=== PATIENT | female | born 1945 | race Caucasian/White ===

== ENCOUNTER 2016-08-06 10:50 | Observation (INO) | payer MEDICARE, OTHER ==
--- NOTE | 2016-08-06 11:02 | EDM.PDOC ---
<Joanne Cast - Last Filed: 08/06/16 12:21> ED HPI GENERAL MEDICAL PROBLEM - General Chief Complaint: General Stated Complaint: [id number] Pneumonia Time Seen by Provider: 08/06/16 10:50 Source of Information: Reports: Patient, Family History Limitations: Reports: Altered mental status (History of liver failure) - History of Present Illness INITIAL COMMENTS - FREE TEXT/NARRATIVE: Patient presents to the ER with her . She has very vague complaints. She states she started not feeling well this morning. states she takes Lactulose 4 times per day, but has not taken it since yesterday am. Onset: today Duration: Chronic (has a history of not taking lactulose as directed.) Severity: moderate - Related Data Allergies Allergy/AdvReac Type Severity Reaction Status Date / Time Penicillins Allergy Difficulty Verified 08/06/16 12:16 Swallowing azithromycin [From Zithromax] AdvReac Unknown Nausea Verified 08/06/16 12:16 Home Meds: Home Meds Omeprazole 20 mg PO DAILY 11/01/14 [History] Lactulose 45 ml PO QID 03/17/15 [History] Alendronate Sodium [Fosamax] 70 mg PO WEEKLY 06/29/15 [History] Acetaminophen [Tylenol Extra Strength] 500 mg PO Q6H PRN 11/01/15 [History] Nadolol [Corgard] 40 mg PO DAILY 11/01/15 [History] Calcium Carbonate/Vitamin D3 [Caltrate 600 Plus D3 Tablet] 1 tab PO DAILY [History] Rifaximin [Xifaxan] 550 mg PO BID 04/28/16 [History] Spironolactone 25 mg PO TID 06/20/16 [History] glipiZIDE [Glucotrol XL] 5 mg PO BID 06/24/16 [History] Past Medical History HEENT History: Reports: Cataract, Other (see below) Other HEENT History: 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, OPHTHALMIC BRANCH Cardiovascular History: Reports: High cholesterol, Hypertension Respiratory History: Reports: Asthma Gastrointestinal History: Reports: Cholelithiasis, Cirrhosis, Other (see below) Other Gastrointestinal History: Non alcoholic liver disease; ESOPHAGEAL VARICIES Genitourinary History: Reports: None, Renal calculus, UTI, recurrent 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 , Musculoskeletal History: Reports: Back pain, chronic, Osteoarthritis, Other ( see below) Other Musculoskeletal History: HX OF RIGHT HIP PAIN, herniated disc Neurological History: Reports: Other (see below) Other Neuro History: HEPATATIC ENCEPHALOPATHY Psychiatric History: Reports: None Endocrine/Metabolic History: Reports: Diabetes, type II, Obesity/BMI 30+, Osteoporosis Hematologic History: Reports: Anemia, Other (see below) Other Hematologic History: thrombocytopenia Immunologic History: Reports: Immunosuppression Oncologic (Cancer) History: Reports: None, Liver Other Oncologic History: Non alcoholic liver disease Dermatologic History: Reports: None - Infectious Disease History Infectious Disease History: Reports: Chicken pox, Shingles - Past Surgical History Head Surgeries/Procedures: Reports: None HEENT Surgical History: Reports: Cataract surgery, Naso-sinus surgery Cardiovascular Surgical History: Reports: None Respiratory Surgical History: Reports: None GI Surgical History: Reports: Appendectomy, Cholecystectomy, Colonoscopy, EGD Female Surgical History: Reports: Salpingo-oophorectomy, Other (see below) Other Female Surgeries/Procedures: removal of right side tubes/ovary Endocrine Surgical History: Reports: None Neurological Surgical History: Reports: None Musculoskeletal Surgical History: Reports: None Oncologic Surgical History: Reports: None Dermatological Surgical History: Reports: None Social & Family History - Family History Family Medical History: Noncontributory HEENT: Reports: Cataract Cardiac: Reports: [place], Other (see below) Other Cardiac Family History: father of heart attack Respiratory: Reports: None GI: Reports: None : Reports: None OBGYN: Reports: None Musculoskeletal: Reports: Gout Neurological: Reports: None Psychiatric: Reports: None Endocrine/Metabolic: Reports: Diabetes, type II Hematologic: Reports: None Immunologic: Reports: None Oncologic: Reports: Breast - Tobacco Use Smoking Status *Q: Never Smoker Years of Tobacco use: 20 Packs/Tins Daily: 1 Second Hand Smoke Exposure: No - Caffeine Use Caffeine Use: Reports: Coffee - Alcohol Use Days Per Week of Alcohol Use: 0 - Recreational Drug Use Recreational Drug Use: No Drug Use in Last 12 Months: No - Living Situation & Occupation Living situation: Reports: ED ROS GENERAL - Review of Systems Constitutional: Reports: weakness HEENT: Reports: No symptoms Respiratory: Reports: no symptoms Cardiovascular: Reports: No symptoms Endocrine: Reports: no symptoms GI/Abdominal: Reports: No symptoms : Reports: no symptoms Musculoskeletal: Reports: no symptoms Skin: Reports: no symptoms Neurological: Reports: no symptoms Psychiatric: Reports: Confusion Hematologic/Lymphatic: Reports: no symptoms Immunologic: Reports: no symptoms ED EXAM, GENERAL - Physical Exam Exam: See Below Exam Limited By: Altered mental status General Appearance: alert, no apparent distress Ears: normal external exam, normal canal, hearing grossly normal, normal TMs Ear Exam: bilateral ear: auricle normal, canal normal, TM normal Nose: normal inspection, normal mucosa, no blood Throat/Mouth: Normal inspection, Normal lips, Normal teeth, Normal gums, Normal oropharynx, Normal voice, No airway compromise Head: atraumatic, normocephalic Neck: normal inspection, supple, non-tender, full range of motion Respiratory/Chest: no respiratory distress, lungs clear, normal breath sounds, no accessory muscle use, chest non-tender Cardiovascular: normal peripheral pulses, regular rate, rhythm, no edema, no gallop, no JVD, no murmur, no rub Peripheral Pulses: 1+: radial (L), radial (R) GI/Abdominal: normal bowel sounds, soft, non tender, no organomegaly, no distention, no abnormal bruit, no mass (Female) Exam: Deferred Rectal (Female) Exam: Deferred Back Exam: normal inspection, full range of motion, NT Extremities: normal inspection, normal range of motion, non-tender, normal capillary refill, no pedal edema Neurological: alert, CN II-XII intact, confused Psychiatric: normal affect, normal mood Skin Exam: Warm, Dry, Intact Lymphatic: no adenopathy Course - Vital Signs Last Recorded V/S: Last Vital Signs Temp 36.9 C 08/06/16 12:23 Pulse 63 08/06/16 12:23 Resp 20 08/06/16 12:23 BP 161/73 H 08/06/16 12:23 Pulse Ox 100 08/06/16 12:24 - Orders/Labs/Meds Orders: Active Orders 24 hr Category Date Time Status Blood Glucose Check, Bedside [RC] ONETIME Care 08/06/16 10:57 Active UA W/MICROSCOPIC [URIN] Stat Lab 08/06/16 10:53 Uncollected Medication Orders Insulin Aspart (Novolog) 0 unit SUBCUT QIDACANDBED BENNY PRN Reason: Protocol Sodium Chloride (Saline Flush) 10 ml FLUSH ASDIRECTED PRN PRN Reason: Keep Vein Open Labs: Laboratory Tests 08/06/16 08/06/16 08/06/16 Range/Units 10:57 11:05 11:05 WBC 2.0 L (5.0-10.0) 10^3/uL RBC 2.81 L (4.2-5.4) 10^6/uL Hgb 8.3 L (12.0-16.0) g/dL Hct 24.7 L (37.0-47.0) % MCV 87.9 (80-100) fL MCH 29.5 (27.0-34.0) pg MCHC 33.6 (33.0-35.0) g/dL Plt Count 40 L* (150-450) 10^3/uL Neut % (Auto) 65.6 (42.2-75.2) % Lymph % (Auto) 21.6 (20.5-50.1) % [place] % (Auto) 5.9 (2-8) % Eos % (Auto) 6.4 H (1.0-3.0) % Baso % (Auto) 0.5 (0.0-1.0) % Sodium 138 (135-145) mmol/L Potassium 4.5 (3.6-5.0) mmol/L Chloride 114 H (101-111) mmol/L Carbon Dioxide 20.0 L (21.0-31.0) mmol/L Anion Gap 8.5 BUN 17 (7-18) mg/dL Creatinine 0.9 (0.6-1.3) mg/dL Est Cr Clr Drug Dosing 44.52 mL/min Estimated GFR (MDRD) > 60 BUN/Creatinine Ratio 18.88 Glucose 150 H (74-105) mg/dL POC Glucose 155 H (70-105) mg/dl Calcium 8.0 L (8.4-10.2) mg/dl Total Bilirubin 0.8 (0.2-1.0) mg/dL AST 23 (10-42) IU/L ALT 12 (10-60) IU/L Alkaline Phosphatase 33 L (42-121) IU/L Ammonia (11-35) umol/L Total Protein 5.8 L (6.7-8.2) g/dl Albumin 2.8 L (3.2-5.5) g/dl Globulin 3.0 Albumin/Globulin Ratio 0.93 08/06/16 Range/Units 11:05 WBC (5.0-10.0) 10^3/uL RBC (4.2-5.4) 10^6/uL Hgb (12.0-16.0) g/dL Hct (37.0-47.0) % MCV (80-100) fL MCH (27.0-34.0) pg MCHC (33.0-35.0) g/dL Plt Count (150-450) 10^3/uL Neut % (Auto) (42.2-75.2) % Lymph % (Auto) (20.5-50.1) % [place] % (Auto) (2-8) % Eos % (Auto) (1.0-3.0) % Baso % (Auto) (0.0-1.0) % Sodium (135-145) mmol/L Potassium (3.6-5.0) mmol/L Chloride (101-111) mmol/L Carbon Dioxide (21.0-31.0) mmol/L Anion Gap BUN (7-18) mg/dL Creatinine (0.6-1.3) mg/dL Est Cr Clr Drug Dosing mL/min Estimated GFR (MDRD) BUN/Creatinine Ratio Glucose (74-105) mg/dL POC Glucose (70-105) mg/dl Calcium (8.4-10.2) mg/dl Total Bilirubin (0.2-1.0) mg/dL AST (10-42) IU/L ALT (10-60) IU/L Alkaline Phosphatase (42-121) IU/L Ammonia 81 H (11-35) umol/L Total Protein (6.7-8.2) g/dl Albumin (3.2-5.5) g/dl Globulin Albumin/Globulin Ratio Meds: Medications Generic Name Dose Route Start Last Admin Trade Name Freq PRN Reason Stop Dose Admin Insulin Aspart 0 unit 08/06/16 17:00 Novolog SUBCUT QIDACANDBED BENNY Protocol Sodium Chloride 10 ml 08/06/16 12:23 Saline Flush FLUSH ASDIRECTED PRN Keep Vein Open Departure - Departure Time of Disposition: 11:58 (Admit to Dr. Pascual) Disposition: Refer to Observation Condition: good Clinical Impression: Non compliance w medication regimen, Pancytopenia, Hepatic encephalopathy <Antolin Ulrich - Last Filed: 08/06/16 13:12> ED HPI GENERAL MEDICAL PROBLEM - History of Present Illness Duration: Getting worse Location: Reports: generalized Improves with: Reports: None Worsens with: Reports: None Associated Symptoms: Reports: no other symptoms Bilateral Leg Pain Score (Numeric/FACES): 7 ED ROS GENERAL - Review of Systems Review Of Systems: See Below Course - Orders/Labs/Meds Meds: Medications Generic Name Dose Route Start Last Admin Trade Name Freq PRN Reason Stop Dose Admin Insulin Aspart 0 unit 08/06/16 17:00 Novolog SUBCUT QIDACANDBED BENNY Protocol Sodium Chloride 10 ml 08/06/16 12:23 Saline Flush FLUSH ASDIRECTED PRN Keep Vein Open - Re-Assessments/Exams Free Text/Narrative Re-Assessment/Exam: 08/06/16 12:02 FOR THIS ENCOUNTER THE PATIENT WAS SEEN IN CONJUNCTION WITH [facility] STUDENT JOANNE CAST. ALL PATIENT CARE AND/OR PROCEDURE(S), DIAGNOSTIC ORDERS, MEDICATION(S) AND TREATMENT ORDERS, DISPOSITION ORDERS/PLANNING, AND DISCHARGE/FOLLOW UP INSTRUCTIONS WERE UNDER MY DIRECT SUPERVISION. wally
[2016-08-06 11:33] LABS: CHLORIDE,CL 114 mmol/L (101-111); SODIUM,NA 138 mmol/L (135-145)
[2016-08-06] MEDS ORDERED: Sodium Chloride 0.9% 10 ML Syringe FLUSH PRN (12:23)
--- NOTE | 2016-08-06 12:26 | PCM.HP ---
H&P History of Present Illness - General Date of Service: 08/06/16 Admit Problem/Dx: Admission Diagnosis/Problem Admission Diagnosis/Problem Encephalopathy Source of Information: Family, Provider History Limitations: Reports: Altered mental status - History of Present Illness Initial Comments - Free Text/Narative: Ashley is a 70 y/o who resides at home with her . She has a PMH of primary biliary cirrhosis, TOPETE, h/o multiople admission for hepatic encephalopathy , pancytopenia, and DM. pt presents with confusion. noted this am that she was "not herself " and confused. He suspects she has not been taking her medications (per EOD MD report- no family at bedside when pt transfered to floor) - pt states she doesnt like the lactulos as it causes diarrhea and makes her nauseated when she takes it. PT can id that she is in the hospital in [place] because she is confused and not taking her meds but her overal history is very unreliable- she gives different answers for same question i.e. did/ did not take her am meds, did / did not take just her lactulose / rifampin. PT also could not recall name of her lactulose- which she typically would be able to - was able to recall with hints/promps from nurse. she denies any f/c, n/v, diarrhea, abd pain, cough, cp, sob, dysuria, or urinary frequency no muslce pain. no joint pain. - Related Data Allergies/Adverse Reactions: Allergies Allergy/AdvReac Type Severity Reaction Status Date / Time Penicillins Allergy Difficulty Verified 08/06/16 12:16 Swallowing azithromycin [From Zithromax] AdvReac Unknown Nausea Verified 08/06/16 12:16 Home Medications: Home Meds Omeprazole 20 mg PO DAILY 11/01/14 [History] Lactulose 45 ml PO QID 03/17/15 [History] Alendronate Sodium [Fosamax] 70 mg PO WEEKLY 06/29/15 [History] Acetaminophen [Tylenol Extra Strength] 500 mg PO Q6H PRN 11/01/15 [History] Nadolol [Corgard] 40 mg PO DAILY 11/01/15 [History] Calcium Carbonate/Vitamin D3 [Caltrate 600 Plus D3 Tablet] 1 tab PO DAILY [History] Rifaximin [Xifaxan] 550 mg PO BID 04/28/16 [History] Spironolactone 25 mg PO TID 06/20/16 [History] glipiZIDE [Glucotrol XL] 5 mg PO BID 06/24/16 [History] Past Medical History HEENT History: Reports: Cataract, Other (see below) Other HEENT History: 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, OPHTHALMIC BRANCH Cardiovascular History: Reports: High cholesterol, Hypertension Respiratory History: Reports: Asthma Gastrointestinal History: Reports: Cholelithiasis, Cirrhosis, Other (see below) Other Gastrointestinal History: Non alcoholic liver disease; ESOPHAGEAL VARICIES Genitourinary History: Reports: None, Renal calculus, UTI, recurrent 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 , Musculoskeletal History: Reports: Back pain, chronic, Osteoarthritis, Other ( see below) Other Musculoskeletal History: HX OF RIGHT HIP PAIN, herniated disc Neurological History: Reports: Other (see below) Other Neuro History: HEPATATIC ENCEPHALOPATHY Psychiatric History: Reports: None Endocrine/Metabolic History: Reports: Diabetes, type II, Obesity/BMI 30+, Osteoporosis Hematologic History: Reports: Anemia, Other (see below) Other Hematologic History: thrombocytopenia Immunologic History: Reports: Immunosuppression Oncologic (Cancer) History: Reports: None, Liver Other Oncologic History: Non alcoholic liver disease Dermatologic History: Reports: None - Infectious Disease History Infectious Disease History: Reports: Chicken pox, Shingles - Past Surgical History Head Surgeries/Procedures: Reports: None HEENT Surgical History: Reports: Cataract surgery, Naso-sinus surgery Cardiovascular Surgical History: Reports: None Respiratory Surgical History: Reports: None GI Surgical History: Reports: Appendectomy, Cholecystectomy, Colonoscopy, EGD Female Surgical History: Reports: Salpingo-oophorectomy, Other (see below) Other Female Surgeries/Procedures: removal of right side tubes/ovary Endocrine Surgical History: Reports: None Neurological Surgical History: Reports: None Musculoskeletal Surgical History: Reports: None Oncologic Surgical History: Reports: None Dermatological Surgical History: Reports: None Social & Family History - Family History Family Medical History: Noncontributory HEENT: Reports: Cataract Cardiac: Reports: [place], Other (see below) Other Cardiac Family History: father of heart attack Respiratory: Reports: None GI: Reports: None : Reports: None OBGYN: Reports: None Musculoskeletal: Reports: Gout Neurological: Reports: None Psychiatric: Reports: None Endocrine/Metabolic: Reports: Diabetes, type II Hematologic: Reports: None Immunologic: Reports: None Oncologic: Reports: Breast - Tobacco Use Smoking Status *Q: Never Smoker Years of Tobacco use: 20 Packs/Tins Daily: 1 Second Hand Smoke Exposure: No - Caffeine Use Caffeine Use: Reports: Coffee - Alcohol Use Days Per Week of Alcohol Use: 0 - Recreational Drug Use Recreational Drug Use: No Drug Use in Last 12 Months: No - Living Situation & Occupation Living situation: Reports: H&P Review of Systems - Review of Systems: Review Of Systems: See Below Free Text/Narrative: taken but not necessarily reliable since she is confused and not giving accurate history General: Reports: no symptoms HEENT: Reports: no symptoms Pulmonary: Reports: no symptoms Cardiovascular: Reports: no symptoms Gastrointestinal: Reports: Diarrhea (with the lactolose ), Nausea Genitourinary: Reports: no symptoms Musculoskeletal: Reports: no symptoms Skin: Reports: no symptoms Psychiatric: Reports: no symptoms Neurological: Reports: confusion Hematologic/Lymphatic: Reports: anemia, easy bruising Exam - Exam Exam: See Below - Vital Signs Vital Signs: Last Vital Signs Temp 36.1 C 08/06/16 10:59 Pulse 71 08/06/16 10:59 Resp 18 08/06/16 10:59 BP 159/64 H 08/06/16 10:59 Pulse Ox 98 08/06/16 10:59 Weight: 72.575 kg - Exam General: alert, cooperative HEENT: Conjunctiva clear, Mucosa moist & pink Lungs: Clear to auscultation, Normal respiratory effort Cardiovascular: regular rate, regular rhythm, systolic murmur Abdomen: normal bowel sounds, soft Extremities: normal inspection, edema (minimal pedal ) Peripheral Pulses: 2+: radial (L), radial (R) Skin: warm Neuro Extensive - Mental Status: alert, inattentive, memory loss-recent events Psychiatric: alert, normal affect - Patient Data Result Diagrams: 08/06/16 11:05 08/06/16 11:05 *Q Meaningful Use (ADM) - VTE *Q VTE Criteria *Q: - Stroke *Q Stroke Criteria *Q: - AMI *Q AMI Criteria *Q: - Problem List (1) Hepatic encephalopathy SNOMED Code(s): 05579486 ICD Code: K72.90 - HEPATIC FAILURE, UNSPECIFIED WITHOUT COMA Status: Acute Current Visit: Yes (2) Non compliance w medication regimen SNOMED Code(s): 589031143 ICD Code: Z91.14 - PATIENT'S OTHER NONCOMPLIANCE WITH MEDICATION REGIMEN Status: Acute Current Visit: Yes (3) Pancytopenia SNOMED Code(s): 913182080 ICD Code: D61.818 - OTHER PANCYTOPENIA Status: Acute Current Visit: Yes Problem List Initiated/Reviewed/Updated: Yes Orders Last 24hrs: Active Orders 24 hr Category Date Time Status Patient Status [ADT] Routine ADT 08/06/16 12:23 Ordered Antiembolic Devices [RC] PER UNIT ROUTINE Care 08/06/16 12:25 Ordered Height and Weight [RC] DAILY Care 08/06/16 12:23 Ordered Intake and Output [RC] QSHIFT Care 08/06/16 12:24 Ordered Oxygen Therapy [RC] PRN Care 08/06/16 12:23 Ordered Peripheral IV Care [RC] . DIRECTED Care 08/06/16 12:25 Ordered Pulse Oximetry [RC] PRN Care 08/06/16 12:24 Ordered Up With Assistance [RC] ASDIRECTED Care 08/06/16 12:23 Ordered VTE/DVT Education [RC] PER UNIT ROUTINE Care 08/06/16 12:23 Ordered Vital Signs [RC] Q4H Care 08/06/16 12:23 Ordered Consistent Carbohydrate Diet [DIET] Diet 08/06/16 Dinner Ordered Sodium Chloride 0.9% [Saline Flush] Med 08/06/16 12:23 Ordered 10 ml FLUSH ASDIRECTED PRN Antiembolic Hose [OM.PC] Per Unit Routine Oth 08/06/16 12:25 Ordered Peripheral IV Insertion Adult [OM.PC] Routine Oth 08/06/16 12:23 Ordered Resuscitation Status Routine Resus Stat 08/06/16 12:23 Ordered Assessment/Plan Comment:: acute Hepatic encephalopathy with h/o PBC and TOPETE -likely due to non-complience -ammonia level 81 - above her baseline levels -no evidence of infection- will f/u on UA - so far uncollected -resume rifapin and lactulose - can add PRN zofran to see if will help with the associated nausea -resume spirololactone and coreg, calcium and vit D -pt has low albumin - will recommend nighttime protein drink to family DM -resume home med - glipizide -add DM diet -add SSI for PRN pancytopenia -levels near baseline - WBC 2; hgb 8.3 plates 40 -no s/s of bleeding recent cateract surgery cont eye drops full code RUPALI DVT PPX due to low plates
[2016-08-06] MEDS ORDERED: Ondansetron 4 MG Tab.DIS PO PRN (13:18)
[2016-08-06] MEDS: Lactulose Soln 10 GM/15 ML 30 ML UD Cup PO SCH ×3 (15:04→21:31)
[2016-08-06] MEDS: Spironolactone 25 MG Tab PO SCH ×2 (15:05→21:28)
[2016-08-06] MEDS: Insulin Aspart 100 Units/ML 3 ML Pen SUBCUT SCH ×2 (17:53→21:35)
[2016-08-06] MEDS: glipiZIDE 5 MG Tab.ER PO SCH (17:55)
[2016-08-06] MEDS: Rifaximin 550 MG Tab PO SCH (21:28)
[2016-08-07] MEDS ORDERED: Omeprazole 20 MG Cap.CR PO SCH (06:00)
[2016-08-07] MEDS: Insulin Aspart 100 Units/ML 3 ML Pen SUBCUT SCH ×2 (07:54→12:10)
[2016-08-07] MEDS: glipiZIDE 5 MG Tab.ER PO SCH (08:59)
[2016-08-07] MEDS: Spironolactone 25 MG Tab PO SCH ×2 (09:00→13:06)
[2016-08-07] MEDS ORDERED: Calcium Carbonate/Vitamin D3 1250 MG-200 Unit Tab PO SCH (09:00)
[2016-08-07] MEDS: Rifaximin 550 MG Tab PO SCH (09:00)
[2016-08-07] MEDS ORDERED: NADOLOL 40 MG PO SCH (09:00)
[2016-08-07] MEDS: Lactulose Soln 10 GM/15 ML 30 ML UD Cup PO SCH ×2 (09:02→13:07)
--- NOTE | 2016-08-07 10:45 | PCM.DCSUM1 ---
Discharge Summary - Hospital Course HPI Initial Comments: Ashley is a 70 y/o who resides at home with her . She has a PMH of primary biliary cirrhosis, TOPETE, h/o multiople admission for hepatic encephalopathy , pancytopenia, and DM. pt presents with confusion. noted this am that she was "not herself " and confused. He suspects she has not been taking her medications (per EOD MD report- no family at bedside when pt transfered to floor) - pt states she doesnt like the lactulos as it causes diarrhea and makes her nauseated when she takes it. PT can id that she is in the hospital in [place] because she is confused and not taking her meds but her overal history is very unreliable- she gives different answers for same question i.e. did/ did not take her am meds, did / did not take just her lactulose / rifampin. PT also could not recall name of her lactulose- which she typically would be able to - was able to recall with hints/promps from nurse. she denies any f/c, n/v, diarrhea, abd pain, cough, cp, sob, dysuria, or urinary frequency no muslce pain. no joint pain. - Discharge Data Discharge Date: 08/07/16 Discharge Disposition: Home, Self-Care 01 Condition: Good - Discharge Diagnosis/Problem(s) (1) Hepatic encephalopathy SNOMED Code(s): 39899047 ICD Code: K72.90 - HEPATIC FAILURE, UNSPECIFIED WITHOUT COMA Status: Acute Current Visit: Yes (2) Non compliance w medication regimen SNOMED Code(s): 596836402 ICD Code: Z91.14 - PATIENT'S OTHER NONCOMPLIANCE WITH MEDICATION REGIMEN Status: Acute Current Visit: Yes (3) Pancytopenia SNOMED Code(s): 166592523 ICD Code: D61.818 - OTHER PANCYTOPENIA Status: Acute Current Visit: Yes - Patient Summary/Data Hospital Course: acute Hepatic encephalopathy with h/o PBC and TOPETE -likely due to non-complience -ammonia level 81 - above her baseline levels -no evidence of infection- -resumed rifapin and lactulose - and pt responded appropriately with 3-4 stools. her sensorium has cleared and she is back to near baseline this AM -on reitan test this AM- completed in 64 seconds- appropriate for her age -contd spirololactone and coreg, calcium and vit D -pt has low albumin - pt will be seeing an nutritionest later this month f/u with Nevaeh Cr 10/22/16 with ultra sound -f/u with Asia Whitaker 08/21/16 for routine f/u DM -resumed home med - glipizide -stable pancytopenia -levels near baseline - WBC 2; hgb 8.3 plates 40 - stable -no s/s of bleeding d/c home with family - Patient Instructions Diet: Diabetic Diet Activity: As Tolerated Driving: Do Not Drive Showering/Bathing: May Shower Notify Provider of: Fever, Increased Pain Other/Special Instructions: f/u with: Asia Whitaker 08/21/16 at 10:40. Angela Martin, blower feeder dyed raw stock, telemed- 09/03/16 at 11:20. Ingris Cr, 10/22/16 - ultra sound at 0900 and appointment at 1030 - Discharge Plan Home Medications: Home Meds Omeprazole 20 mg PO DAILY 11/01/14 [History] Lactulose 45 ml PO QID 03/17/15 [History] Alendronate Sodium [Fosamax] 70 mg PO WEEKLY 06/29/15 [History] Acetaminophen [Tylenol Extra Strength] 500 mg PO Q6H PRN 11/01/15 [History] Nadolol [Corgard] 40 mg PO DAILY 11/01/15 [History] Calcium Carbonate/Vitamin D3 [Caltrate 600 Plus D3 Tablet] 1 tab PO DAILY [History] Rifaximin [Xifaxan] 550 mg PO BID 04/28/16 [History] Spironolactone 25 mg PO TID 06/20/16 [History] glipiZIDE [Glucotrol XL] 5 mg PO BID 06/24/16 [History] - General Info Date of Service: 08/07/16 Subjective Update: pt much improved this am. no BM yet today but 3-4 yesterday after admit. pt states no nausesa today. states diarrhea and not nausea is the reason she doesnt take her lactulose- she is complient with her other meds. family have alarm system to help her remember to take her meds. no complaints this am. son states she is much improved and comfortable with her going home Functional Status: Reports: pain controlled, tolerating diet, ambulating, urinating - Review of Systems General: Reports: no symptoms HEENT: Reports: no symptoms Pulmonary: Reports: no symptoms Cardiovascular: Reports: no symptoms Gastrointestinal: Reports: No symptoms Genitourinary: Reports: no symptoms Musculoskeletal: Reports: no symptoms Skin: Reports: no symptoms Neurological: Reports: no symptoms Psychiatric: Reports: no symptoms - Patient Data Vitals - Most Recent: Last Vital Signs Temp 36.6 C 08/07/16 08:00 Pulse 69 08/07/16 08:00 Resp 14 08/07/16 08:00 BP 140/66 08/07/16 08:00 Pulse Ox 99 08/07/16 08:00 Weight - Most Recent: 176.2 kg I&O - Last 24 hours: Intake & Output 08/06/16 08/07/16 08/07/16 22:59 06:59 14:59 Intake Total 220 440 Output Total 350 Balance 220 90 Lab Results - Last 24 hrs: Laboratory Results - last 24 hr 08/06/16 08/06/16 08/07/16 Range/Units 17:06 20:54 07:39 POC Glucose 229 H 141 H 74 (70-105) mg/dl Med Orders - Current: Current Medications Calcium Carbonate (Calcium Carbonate/Vitamin D 1250 Mg-200 Unit) 1 tab PO DAILY [facility] Last Admin: 08/07/16 08:58 Dose: 1 tab Glipizide (Glucotrol Xl) 5 mg PO BIDMEALS [facility] Last Admin: 08/07/16 08:59 Dose: 5 mg Insulin Aspart (Novolog) 0 unit SUBCUT QIDACANDBED [facility] PRN Reason: Protocol Last Admin: 08/07/16 07:54 Dose: Not Given Lactulose (Cephulac) 30 gm PO QID [facility] Last Admin: 08/07/16 09:02 Dose: 30 gm Omeprazole (Omeprazole) 20 mg PO ACBRK [facility] Last Admin: 08/07/16 05:50 Dose: 20 mg Ondansetron HCl (Zofran Odt) 4 mg PO Q4H PRN PRN Reason: Nausea Nadolol [Corgard] 40 MgPt's Own Med * 0 each PO DAILY [facility] Rifaximin (Xifaxan) 550 mg PO BID [facility] Last Admin: 08/07/16 09:00 Dose: 550 mg Sodium Chloride (Saline Flush) 10 ml FLUSH ASDIRECTED PRN PRN Reason: Keep Vein Open Spironolactone (Aldactone) 25 mg PO TID [facility] Last Admin: 08/07/16 09:00 Dose: 25 mg - Exam General: Reports: alert, oriented, cooperative, no acute distress Lungs: Reports: Clear to auscultation, Normal respiratory effort Cardiovascular: Reports: regular rate, regular rhythm, murmurs Abdomen: Reports: bowel sounds present, no tenderness Extremities: Reports: no edema Neurological: Reports: normal speech, other (no confusion. able to complete Reitan test in 64 seconds- approprate for her age ) Psy/Mental Status: Reports: alert, normal affect, normal mood *Q Meaningful Use (DIS) - VTE *Q VTE Criteria *Q: - Stroke *Q Stroke Criteria *Q: - AMI *Q AMI Criteria *Q:
[2016-08-07 11:11] VITALS: BP 139/57
== END 2016-08-07 13:55 | disposition home or self-care (01) ==
LOC: DL.ED 10:50 → UNDOADMOB 11:56 → DL.MS 11:56 → UNDOADMOB 12:22 → DL.MS 12:23
PROVIDERS: ADMIT Internal Medicine; ATTEND Internal Medicine
DX: K72.90 Hepatic failure, unspecified without coma (principal); K74.5 Biliary cirrhosis, unspecified; D61.818 Other pancytopenia; E11.9 Type 2 diabetes mellitus without complications; I10 Essential (primary) hypertension; E78.00 Pure hypercholesterolemia, unspecified; J45.909 Unspecified asthma, uncomplicated; M19.90 Unspecified osteoarthritis, unspecified site; D69.6 Thrombocytopenia, unspecified; D64.9 Anemia, unspecified; M81.0 Age-related osteoporosis without current pathological fracture; Z91.14 Patient's other noncompliance with medication regimen; Z79.899 Other long term (current) drug therapy; Z88.0 Allergy status to penicillin; Z88.1 Allergy status to other antibiotic agents; Z87.442 Personal history of urinary calculi; Z98.890 Other specified postprocedural states; Z90.49 Acquired absence of other specified parts of digestive tract
CPT/HCPCS: 36415; 80053; 81001; 82140; 82962; 85025; 99285; A9270; G0378; J1815

== ENCOUNTER 2016-09-30 09:55 | Inpatient (IN) | payer MEDICARE, OTHER ==
[2016-09-30 10:32] LABS: CHLORIDE,CL 115 mmol/L (101-111); SODIUM,NA 141 mmol/L (135-145)
--- NOTE | 2016-09-30 10:33 | EDM.PDOC ---
ED HPI GENERAL MEDICAL PROBLEM - General Chief Complaint: General Stated Complaint: CONFUSED Time Seen by Provider: 09/30/16 10:20 Source of Information: Reports: Patient, Family History Limitations: Reports: No limitations - History of Present Illness INITIAL COMMENTS - FREE TEXT/NARRATIVE: This 71 yo female patient reports to the ED with her due to increased confusion over the past 24 hours. The patient reports she has missed a "couple" of doses of her medication over the past week. The patient's reports the patient has missed doses of her Lactulose on Thursday (due to being in physical therapy), (due to being in physical therapy), Thursday (for unknown reason), Thursday (due to episcopal) and Thursday (for unknown reason). The patient has a history of primary biliary cirrhosis, TOPETE, hepatic encephalopathy , pancytopenia and DM. The patient reports she has been taking all of her other medications as scheduled. The patient's reports that he has been attempting to assist her in taking her medications, but the patient as refused to take some of her medication doses due to having to use the bathroom. The patient has been admitted numerous times for similar symptoms. Onset: gradual Duration: Day(s):, Constant, Getting worse Location: Reports: other Severity: moderate Improves with: Reports: None Worsens with: Reports: None Associated Symptoms: Reports: no other symptoms - Related Data Allergies Allergy/AdvReac Type Severity Reaction Status Date / Time Penicillins Allergy Difficulty Verified 09/30/16 09:49 Swallowing azithromycin [From Zithromax] AdvReac Unknown Nausea Verified 09/30/16 09:49 Home Meds: Home Meds Omeprazole 20 mg PO DAILY 11/01/14 [History] Lactulose 45 ml PO QID 03/17/15 [History] Alendronate Sodium [Fosamax] 70 mg PO WEEKLY 06/29/15 [History] Acetaminophen [Tylenol Extra Strength] 500 mg PO Q6H PRN 11/01/15 [History] Nadolol [Corgard] 40 mg PO DAILY 11/01/15 [History] Calcium Carbonate/Vitamin D3 [Caltrate 600 Plus D3 Tablet] 1 tab PO DAILY [History] Rifaximin [Xifaxan] 550 mg PO BID 04/28/16 [History] Spironolactone 25 mg PO TID 06/20/16 [History] glipiZIDE [Glucotrol XL] 5 mg PO BID 06/24/16 [History] Past Medical History HEENT History: Reports: Cataract, Other (see below) Other HEENT History: 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, OPHTHALMIC BRANCH Cardiovascular History: Reports: High cholesterol, Hypertension Respiratory History: Reports: Asthma Gastrointestinal History: Reports: Cholelithiasis, Cirrhosis, Other (see below) Other Gastrointestinal History: Non alcoholic liver disease; ESOPHAGEAL VARICIES Genitourinary History: Reports: None, Renal calculus, UTI, recurrent APRN History: Reports: Ectopic , Musculoskeletal History: Reports: Back pain, chronic, Osteoarthritis, Other ( see below) Other Musculoskeletal History: HX OF RIGHT HIP PAIN, herniated disc Neurological History: Reports: Other (see below) Other Neuro History: HEPATATIC ENCEPHALOPATHY Psychiatric History: Reports: None Endocrine/Metabolic History: Reports: Diabetes, type II, Obesity/BMI 30+, Osteoporosis Hematologic History: Reports: Anemia, Other (see below) Other Hematologic History: thrombocytopenia Immunologic History: Reports: Immunosuppression Oncologic (Cancer) History: Reports: None, Liver Other Oncologic History: Non alcoholic liver disease Dermatologic History: Reports: None - Infectious Disease History Infectious Disease History: Reports: Chicken pox, Shingles - Past Surgical History Head Surgeries/Procedures: Reports: None HEENT Surgical History: Reports: Cataract surgery, Naso-sinus surgery Cardiovascular Surgical History: Reports: None Respiratory Surgical History: Reports: None GI Surgical History: Reports: Appendectomy, Cholecystectomy, Colonoscopy, EGD Female Surgical History: Reports: Salpingo-oophorectomy, Other (see below) Other Female Surgeries/Procedures: removal of right side tubes/ovary Endocrine Surgical History: Reports: None Neurological Surgical History: Reports: None Musculoskeletal Surgical History: Reports: None Oncologic Surgical History: Reports: None Dermatological Surgical History: Reports: None Social & Family History - Family History Family Medical History: Noncontributory HEENT: Reports: Cataract Cardiac: Reports: [place], Other (see below) Other Cardiac Family History: father of heart attack Respiratory: Reports: None GI: Reports: None : Reports: None OBGYN: Reports: None Musculoskeletal: Reports: Gout Neurological: Reports: None Psychiatric: Reports: None Endocrine/Metabolic: Reports: Diabetes, type II Hematologic: Reports: None Immunologic: Reports: None Oncologic: Reports: Breast - Tobacco Use Smoking Status *Q: Never Smoker Years of Tobacco use: 20 Packs/Tins Daily: 1 Second Hand Smoke Exposure: No - Caffeine Use Caffeine Use: Reports: Coffee - Alcohol Use Days Per Week of Alcohol Use: 0 - Recreational Drug Use Recreational Drug Use: No Drug Use in Last 12 Months: No - Living Situation & Occupation Living situation: Reports: ED ROS GENERAL - Review of Systems Review Of Systems: ROS reveals no pertinent complaints other than HPI. ED EXAM, GENERAL - Physical Exam Exam: See Below Exam Limited By: No limitations General Appearance: alert, WD/WN, mild distress Eye Exam: bilateral eye: EOMI, normal inspection, PERRL Ears: normal external exam, normal canal, hearing grossly normal, normal TMs Nose: normal inspection, normal mucosa, no blood Throat/Mouth: Normal inspection, Normal lips, Normal teeth, Normal gums, Normal oropharynx, Normal voice, No airway compromise Head: atraumatic, normocephalic Neck: normal inspection, supple, non-tender, full range of motion Respiratory/Chest: no respiratory distress, no accessory muscle use, chest non- tender, wheezing Cardiovascular: normal peripheral pulses, regular rate, rhythm, no edema, no gallop, no JVD, no murmur, no rub GI/Abdominal: normal bowel sounds, soft, non tender, no organomegaly, no distention, no abnormal bruit, no mass (Female) Exam: Deferred Rectal (Female) Exam: Deferred Back Exam: normal inspection, full range of motion, NT Extremities: normal inspection, normal range of motion, non-tender, normal capillary refill, no pedal edema Neurological: alert Psychiatric: flat affect Skin Exam: Warm, Dry, Intact, Normal color, No rash Lymphatic: no adenopathy Course - Vital Signs Last Recorded V/S: Last Vital Signs Temp 36.4 C 09/30/16 10:18 Pulse 71 09/30/16 10:18 Resp 20 09/30/16 10:18 BP 175/64 H 09/30/16 10:18 Pulse Ox 99 09/30/16 10:18 - Orders/Labs/Meds Orders: Active Orders 24 hr Category Date Time Status Chest 2V [CR] Urgent Exams 09/30/16 10:42 Ordered CULTURE BLOOD [BC] Stat Lab 09/30/16 10:00 Received CULTURE BLOOD [BC] Stat Lab 09/30/16 10:03 Results Lactulose [Cephulac] Med 09/30/16 10:53 Once 30 gm PO ONETIME ONE Blood Culture x2 Reflex Set [OM.PC] Stat Oth 09/30/16 09:48 Ordered Labs: Laboratory Tests 09/30/16 09/30/16 09/30/16 Range/Units 10:00 10:00 10:00 WBC 2.0 L (5.0-10.0) 10^3/uL RBC 2.64 L (4.2-5.4) 10^6/uL Hgb 8.7 L (12.0-16.0) g/dL Hct 25.3 L (37.0-47.0) % MCV 95.8 (80-100) fL MCH 33.0 (27.0-34.0) pg MCHC 34.4 (33.0-35.0) g/dL Plt Count 49 L (150-450) 10^3/uL Neut % (Auto) 60.0 (42.2-75.2) % Lymph % (Auto) 26.0 (20.5-50.1) % [place] % (Auto) 6.0 (2-8) % Eos % (Auto) 7.0 H (1.0-3.0) % Baso % (Auto) 1.0 (0.0-1.0) % Sodium 141 (135-145) mmol/L Potassium 4.6 (3.6-5.0) mmol/L Chloride 115 H (101-111) mmol/L Carbon Dioxide 19.0 L (21.0-31.0) mmol/L Anion Gap 11.6 BUN 23 H (7-18) mg/dL Creatinine 1.1 (0.6-1.3) mg/dL Est Cr Clr Drug Dosing 35.91 mL/min Estimated GFR (MDRD) 49 BUN/Creatinine Ratio 20.90 Glucose 163 H (74-105) mg/dL Lactic Acid (0.5-2.2) mmol/L Calcium 8.6 (8.4-10.2) mg/dl Magnesium 1.4 L (1.8-2.5) mg/dL Total Bilirubin 1.0 (0.2-1.0) mg/dL AST 28 (10-42) IU/L ALT 15 (10-60) IU/L Alkaline Phosphatase 39 L (42-121) IU/L Ammonia 77 H (11-35) umol/L Total Protein 6.2 L (6.7-8.2) g/dl Albumin 3.1 L (3.2-5.5) g/dl Globulin 3.1 Albumin/Globulin Ratio 1.00 Amylase 67 (28-100) U/L Lipase 68 H (22-51) U/L Urine Color (YELLOW) Urine Appearance (CLEAR) Urine pH (5.0-9.0) Ur Specific [place] (1.005-1.030) Urine Protein (NEGATIVE) Urine Glucose (UA) (NEGATIVE) Urine Ketones (NEGATIVE) Urine Occult Blood (NEGATIVE) Urine Nitrite (NEGATIVE) Urine Bilirubin (NEGATIVE) Urine Urobilinogen (0.2-1.0) mg/dL Ur Leukocyte Esterase (NEGATIVE) Urine RBC /HPF Urine WBC (0-5/HPF) /HPF Ur Epithelial Cells /HPF Urine Bacteria (0-FEW/HPF) /HPF Urine Yeast (0/HPF) /HPF Urine Opiates Screen (NEGATIVE) Ur Oxycodone Screen (NEGATIVE) Urine Methadone Screen (NEGATIVE) Ur Barbiturates Screen (NEGATIVE) U Tricyclic Antidepress (NEGATIVE) Ur Phencyclidine Scrn (NEGATIVE) Ur Amphetamine Screen (NEGATIVE) U Methamphetamines Scrn (NEGATIVE) Urine MDMA Screen (NEGATIVE) U Benzodiazepines Scrn (NEGATIVE) Urine Cocaine Screen (NEGATIVE) U Marijuana (THC) Screen (NEGATIVE) Ethyl Alcohol < 5 mg/dL 09/30/16 09/30/16 09/30/16 Range/Units 10:00 10:05 10:05 WBC (5.0-10.0) 10^3/uL RBC (4.2-5.4) 10^6/uL Hgb (12.0-16.0) g/dL Hct (37.0-47.0) % MCV (80-100) fL MCH (27.0-34.0) pg MCHC (33.0-35.0) g/dL Plt Count (150-450) 10^3/uL Neut % (Auto) (42.2-75.2) % Lymph % (Auto) (20.5-50.1) % [place] % (Auto) (2-8) % Eos % (Auto) (1.0-3.0) % Baso % (Auto) (0.0-1.0) % Sodium (135-145) mmol/L Potassium (3.6-5.0) mmol/L Chloride (101-111) mmol/L Carbon Dioxide (21.0-31.0) mmol/L Anion Gap BUN (7-18) mg/dL Creatinine (0.6-1.3) mg/dL Est Cr Clr Drug Dosing mL/min Estimated GFR (MDRD) BUN/Creatinine Ratio Glucose (74-105) mg/dL Lactic Acid 1.1 (0.5-2.2) mmol/L Calcium (8.4-10.2) mg/dl Magnesium (1.8-2.5) mg/dL Total Bilirubin (0.2-1.0) mg/dL AST (10-42) IU/L ALT (10-60) IU/L Alkaline Phosphatase (42-121) IU/L Ammonia (11-35) umol/L Total Protein (6.7-8.2) g/dl Albumin (3.2-5.5) g/dl Globulin Albumin/Globulin Ratio Amylase (28-100) U/L Lipase (22-51) U/L Urine Color Yellow (YELLOW) Urine Appearance Slightly cloudy (CLEAR) Urine pH 5.5 (5.0-9.0) Ur Specific [place] 1.020 (1.005-1.030) Urine Protein 100 H (NEGATIVE) Urine Glucose (UA) Negative (NEGATIVE) Urine Ketones Negative (NEGATIVE) Urine Occult Blood Moderate H (NEGATIVE) Urine Nitrite Negative (NEGATIVE) Urine Bilirubin Negative (NEGATIVE) Urine Urobilinogen 0.2 (0.2-1.0) mg/dL Ur Leukocyte Esterase Negative (NEGATIVE) Urine RBC 5-10 H /HPF Urine WBC 10-20 H (0-5/HPF) /HPF Ur Epithelial Cells Many H /HPF Urine Bacteria Many H (0-FEW/HPF) /HPF Urine Yeast Moderate H (0/HPF) /HPF Urine Opiates Screen Negative (NEGATIVE) Ur Oxycodone Screen Negative (NEGATIVE) Urine Methadone Screen Negative (NEGATIVE) Ur Barbiturates Screen Negative (NEGATIVE) U Tricyclic Antidepress Negative (NEGATIVE) Ur Phencyclidine Scrn Negative (NEGATIVE) Ur Amphetamine Screen Negative (NEGATIVE) U Methamphetamines Scrn Negative (NEGATIVE) Urine MDMA Screen Negative (NEGATIVE) U Benzodiazepines Scrn Negative (NEGATIVE) Urine Cocaine Screen Negative (NEGATIVE) U Marijuana (THC) Screen Negative (NEGATIVE) Ethyl Alcohol mg/dL Departure - Departure Time of Disposition: 10:58 Disposition: Admitted As Inpatient 67 Condition: fair Clinical Impression: Hepatic encephalopathy, Non compliance w medication regimen, Increased ammonia level Care Plan Goals: Discussed the history, examination and lab results with Dr. Garcia. Dr. Garcia accepted the patient for continued evaluation and management as an inpatient at [facility]. - My Orders Last 24 Hours: My Active Orders 09/30/16 09:48 Blood Culture x2 Reflex Set [OM.PC] Stat 09/30/16 10:00 CULTURE BLOOD [BC] Stat 09/30/16 10:03 CULTURE BLOOD [BC] Stat 09/30/16 10:42 Chest 2V [CR] Urgent 09/30/16 10:53 Lactulose [Cephulac] 30 gm PO ONETIME ONE - Assessment/Plan Last 24 Hours: My Active Orders 09/30/16 09:48 Blood Culture x2 Reflex Set [OM.PC] Stat 09/30/16 10:00 CULTURE BLOOD [BC] Stat 09/30/16 10:03 CULTURE BLOOD [BC] Stat 09/30/16 10:42 Chest 2V [CR] Urgent 09/30/16 10:53 Lactulose [Cephulac] 30 gm PO ONETIME ONE
[2016-09-30] MEDS ORDERED: Lactulose Soln 10 GM/15 ML 30 ML UD Cup PO ONE (10:53)
--- NOTE | 2016-09-30 11:01 | CR ---
Clinical history: 71-year-old female complaining shortness of breath. Interpretation: Less than optimal inspiratory effort obese female but normal cardiac silhouette with out alveolar edema or dependent effusion. Ectasia dorsal aorta. No lung mass, hilar lymphadenopathy or focal lobar pneumonia. No pneumothorax or free subdiaphragmatic air. Juan Francisco thorax unremarkable for age. CONCLUSION: No acute new cardiopulmonary abnormality since 2015.
[2016-09-30] MEDS ORDERED: Ondansetron 4 MG/2 ML SDV IVPUSH PRN (12:49)
[2016-09-30] MEDS ORDERED: Magnesium Hydroxide 400 MG/5 ML Susp 30 ML Cup PO PRN (12:49)
[2016-09-30] MEDS ORDERED: Acetaminophen 500 MG Tab PO PRN (12:50)
[2016-09-30] MEDS ORDERED: 50% Dextrose in Water 50 ML Syringe IVPUSH PRN (12:51)
[2016-09-30] MEDS ORDERED: Sodium Chloride 0.9% 1,000 ML IV SCH (13:00)
[2016-09-30] MEDS: Spironolactone 25 MG Tab PO SCH ×2 (14:37→21:06)
[2016-09-30] MEDS: Lactulose Soln 10 GM/15 ML 30 ML UD Cup PO SCH ×3 (14:37→21:07)
[2016-09-30] MEDS: Sodium Chloride 0.9% 10 ML Syringe FLUSH PRN (15:04)
[2016-09-30] MEDS: glipiZIDE 2.5 MG Tab.ER PO SCH (17:16)
--- NOTE | 2016-09-30 18:42 | HP ---
CHIEF COMPLAINT: Increased confusion. HISTORY OF PRESENTING ILLNESS: Mrs. Ngozi Ramirez is a 71-year-old female with a medical history significant for nonalcoholic steatohepatitis, liver cirrhosis, esophageal varices, thrombocytopenia, type 2 diabetes mellitus, hypertension, hyperlipidemia, presented to the ER with complaints of increased confusion. At this time, the patient is accompanied by her who is at the bedside, who is also helping with the history. The patient remains little bit confused at this time. As per the , the patient had not been taking her lactulose in the last 2 days. She has skipped taking the lactulose on Thursday morning and also on Thursday, which could possibly result in this hepatic encephalopathy. The patient is awake and alert at this time. She follows commands spontaneously. As per the , she did not have any fevers or chills in the last few days. No cough with sputum for the last few days. No complaints of nausea, vomiting, or diarrhea in the last few days. The patient denies any complaints of chest pain, but complains of mild shortness of breath on exertion. Denies any abdominal pain. No burning micturition. The patient denied any history of chest pains on exertion, but has mild dyspnea on exertion. No history of orthopnea or paroxysmal nocturnal dyspnea. The patient denied any history of hematemesis, hematochezia, or melanotic stools recently. Normal bowel and bladder habits otherwise. REVIEW OF SYSTEMS: A complete review of system is difficult to obtain at this time secondary to the patient being confused. PAST MEDICAL HISTORY: Significant for: 1. Hypertension. 2. Type 2 diabetes mellitus. 3. Hyperlipidemia. 4. Nonalcoholic steatohepatitis. 5. Thrombocytopenia. 6. History of herpes zoster ophthalmicus. 7. Hepatic encephalopathy. 8. Esophageal varices. 9. Liver cirrhosis. 10.Asthma. 11.Anemia. 12.Urolithiasis in the past. PAST SURGICAL HISTORY: Significant for: 1. Bone marrow biopsy. 2. Status post cholecystectomy. 3. Laparoscopic appendicectomy. 4. Salpingo-oophorectomy. 5. Sinus surgery. 6. Toe osteotomy. 7. Upper endoscopy. FAMILY HISTORY: Significant for breast cancer in her mother, heart disease in her father, and brother with heart disease, high cholesterol, diabetes, and urolithiasis, and another brother with diabetes and colon cancer, and paternal grandmother with breast cancer. SOCIAL HISTORY: The patient denied any history of smoking tobacco. No history of alcohol intake. ALLERGIES: Significant for penicillin and Zithromax. PHYSICAL EXAMINATION: Vital signs: Temperature of 98.2, pulse of 70, blood pressure 168/57, saturating at 100%, respiratory rate of 20. General Appearance: The patient is awake and alert. Follows commands spontaneously. Appears to be confused. Cardiovascular System: S1 and S2 heard with normal intensity. A 3/6 systolic murmur appreciated. Respiratory System: Clear to auscultation bilaterally. No wheeze. No crepitations. Abdomen: Soft. Bowel sounds positive. Nontender. No rigidity. Extremities: No edema in bilateral lower extremities. Neurology: No gross focal neurological deficit. Psychiatry: Appears to be confused. MEDICATIONS: Home medications include: 1. Glipizide XL 5 mg twice a day. 2. Spironolactone 25 mg 3 times a day. 3. Rifaximin 550 mg twice a day. 4. Omeprazole 20 mg daily. 5. Nadolol 40 mg daily. 6. Lactulose 45 mL four times a day. 7. Fosamax 70 mg weekly. 8. Tylenol extra strength 500 mg every 6 hours as needed for pain. LABORATORY DATA: Reviewed. WBC 2, hemoglobin 8.7, hematocrit 25.3, platelet count 49. Sodium 141, potassium 4.6, chloride 115, bicarb 19, BUN 23, creatinine 1.1, glucose 163, lactic acid 1.1, magnesium 1.4, AST 28, ALT 15, alkaline phosphorus 39, ammonia 77, lipase 68, amylase 67. Urinalysis; negative for nitrites, negative for leukocyte esterase, 10 to 20 Wbc's. Urine toxicology screen negative. Blood alcohol level less than 5. ASSESSMENT: 1. Acute hepatic encephalopathy. 2. Anemia. 3. Thrombocytopenia. 4. Acute hypomagnesemia. 5. Noncompliance with medical treatment plan. 6. Hypertension. 7. Type 2 diabetes mellitus, uncontrolled. 8. Hyperlipidemia. 9. History of esophageal viruses. 10.Nonalcoholic steatohepatitis. 11.History of asthma. PLAN: 1. Acute hepatic encephalopathy. The patient presents with increased confusion. She is noted to have elevated ammonia up to 77. She has not been taking her lactulose for the last 2 days. We will resume her lactulose. The patient and family members were explained about the importance of taking lactulose. No signs of infection identified at this time. Her urinalysis looks benign. Her chest x-ray looks benign. The patient denied any fevers or chills in the last few days. We will closely follow the patient. 2. Anemia and thrombocytopenia. This is mainly from her underlying cirrhosis and portal hypertension. The patient denied any recent hematemesis, hematochezia, or melanotic stools. She had history of esophageal biopsies. We will continue with proton-pump inhibitor. We will closely follow the patient. We will recheck a CBC in a.m. 3. Hypomagnesemia. We will replace with oral magnesium oxide and recheck magnesium in a.m. 4. Hypertension. The patient's blood pressure seems to be in acceptable range. She is currently on Nadolol continue the same. She is noted to have elevated blood pressure at times. We will further dose adjust the medication to optimize the blood pressure. While in the hospital, one can use clonidine 0.1 mg as needed for systolic blood pressure greater than 160. 5. Type 2 diabetes mellitus. The patient is noted to be on oral agents. We will continue the same for now. We will check her fingersticks with each meals, have her on supplemental scale insulin as needed for additional coverage of her blood glucose. Her recent hemoglobin A1c is from August of 2016 which is 6.2, suggestive of well controlled diabetes. 6. Deep vein thrombosis prophylaxis secondary to thrombocytopenia, liver cirrhosis, history of esophageal varices. We will avoid any heparin products for now. We will use SCDs for deep vein thrombosis prophylaxis and encourage the patient to ambulate while in the hospital. 7. Discussed with family members at bedside. 8. Discussed with Dr. Eren Lucas regarding the plan of care. Reviewed the labs and medications. Reviewed the old charts. [facility] /[id number]
[2016-09-30] MEDS: Rifaximin 550 MG Tab PO SCH (21:07)
[2016-09-30] MEDS: Insulin Aspart 100 Units/ML 3 ML Pen SUBCUT SCH (21:09)
[2016-10-01] MEDS: Omeprazole 20 MG Cap.CR PO SCH (05:44)
[2016-10-01 07:17] LABS: CHLORIDE,CL 116 mmol/L (101-111); SODIUM,NA 140 mmol/L (135-145)
[2016-10-01] MEDS: glipiZIDE 2.5 MG Tab.ER PO SCH ×2 (07:52→18:59)
[2016-10-01] MEDS: Insulin Aspart 100 Units/ML 3 ML Pen SUBCUT SCH ×2 (07:52→20:56)
[2016-10-01] MEDS: Rifaximin 550 MG Tab PO SCH ×2 (10:19→20:55)
[2016-10-01] MEDS: Spironolactone 25 MG Tab PO SCH ×2 (10:19→20:55)
[2016-10-01] MEDS: Lactulose Soln 10 GM/15 ML 30 ML UD Cup PO SCH ×4 (10:20→20:55)
[2016-10-01] MEDS: Calcium Carbonate/Vitamin D3 1250 MG-200 Unit Tab PO SCH (10:20)
[2016-10-01] MEDS: NADOLOL 40 MG PO SCH (12:44)
[2016-10-01] MEDS: Fluconazole 100 MG Tab PO SCH (12:45)
--- NOTE | 2016-10-01 13:36 | PN ---
DATE: 10/01/2016 SUBJECTIVE: Mrs. Ngozi Ramirez is a 71-year-old female with medical history significant for nonalcoholic steatohepatitis leading to liver cirrhosis, esophageal varices, thrombocytopenia, type 2 diabetes mellitus, hypertension, hyperlipidemia, presented with complaints of increasing confusion with hepatic encephalopathy. For the last 24 hours, the patient was started back on the lactulose after which her mentation seems to be improved. She denies any chest pain. No shortness of breath. No abdominal pain. No nausea. No vomiting. No diarrhea. No fevers or chills noted overnight. REVIEW OF SYSTEMS: Cardiovascular, respiratory, gastrointestinal, neurology, and constitutional were all evaluated. PHYSICAL EXAMINATION: Vital signs: Temperature of 97.1, pulse of 68, blood pressure 127/59, respiratory rate of 20, saturating at 99% on room air. General Appearance: Patient is well oriented to time, place, and person. Follows commands spontaneously. Cardiovascular System: S1, S2 heard with normal intensity. No gallops. Respiratory System: Clear to auscultation bilaterally. No wheeze. No crepitations. Abdomen: Soft. Bowel sounds positive. Nontender. No rigidity. Extremities: No edema bilateral lower extremities. Neurology: No gross focal neurological deficits. Skin: No acute rash noted. MEDICATIONS: Reviewed: 1. Continue with Tylenol 500 mg every 6 hours as needed for pain. 2. Glipizide 5 mg twice a day. 3. NovoLog supplemental scale. 4. Lactulose 30 g oral 4 times a day. 5. Milk of magnesia 30 mL every 12 hours as needed for constipation. 6. Omeprazole 20 mg daily. 7. Zofran 4 mg IV every 4 hours as needed for nausea and vomiting. 8. Rifaximin 550 mg p.o. twice a day. 9. Spironolactone 25 mg 3 times a day. LABORATORY DATA: WBC 2.6, hemoglobin 8.6, hematocrit 25.6, and platelet count 48. Sodium 140, potassium 4, chloride 116, bicarb 18, BUN 18, creatinine 0.9, and glucose 76. Toxicology screen negative. Microbiology no growth so far. ASSESSMENT: 1. Acute hepatic encephalopathy. 2. Pancytopenia with anemia, thrombocytopenia, and neutropenia. 3. Acute hypomagnesemia. 4. Noncompliance with medical treatment plan. 5. Hypertension. 6. Type 2 diabetes mellitus, uncontrolled. 7. Hyperlipidemia. 8. History of esophageal varices. 9. Non alcoholic steatohepatitis. 10.History of asthma. 11.Hyperchloremic metabolic acidosis. PLAN: 1. Acute hepatic encephalopathy. The patient was admitted with increased confusion, mainly from being noncompliance with lactulose. She has skipped most of the doses. We started back on the lactulose, she is doing much better. She is having 4-5 loose stools and this is bothering her. So this could be a reason of noncompliance. We will change it to 3 times a day and see if that helps her with compliance. 2. Pancytopenia. The patient is noted to have anemia, neutropenia, and thrombocytopenia could be resulting from an underlying liver cirrhosis and splenomegaly. She is at increased risk for infection. We will recheck a CBC in a.m. 3. Acute hypomagnesemia and the patient is noted to be on magnesium oxide, we will continue the same. Recheck magnesium level in a.m. 4. Hypertension. The patient's blood pressure seems to be in acceptable range. The patient was hypotensive at the time of admission, so we had to hold the nadolol. As her blood pressure is improved at this time, we will start her back on the nadolol. Continue spironolactone. We will change the spironolactone to twice a day dosing. 5. Type 2 diabetes mellitus, uncontrolled. The patient is noted to be on glipizide. She was given supplemental scale insulin. She was noted to have lower blood sugar this morning. Try to avoid any hypoglycemic episodes. Continue with hypoglycemic protocol. 6. DVT prophylaxis. Avoid any heparin products at this time second to her thrombocytopenia and given her history of esophageal varices, we will hold any heparin products for now. 7. Possible discharge in a.m. if she remains hemodynamically stable. 8. Her urinalysis was suggestive of possible UTI. We will obtain urine culture and we will closely follow. Her nitrites were negative. Her leukocyte esterase is also negative, but she is noted to have many bacteria and many epithelial cells, this could be a contaminant, but she is noted to have moderate yeast in the urine. We will start her on Diflucan for yeast urinary tract infection. We will follow the culture report. [facility] /[id number]
[2016-10-01] MEDS: Sodium Chloride 0.9% 10 ML Syringe FLUSH PRN (21:03)
[2016-10-02] MEDS: Omeprazole 20 MG Cap.CR PO SCH (05:39)
[2016-10-02] MEDS: Lactulose Soln 10 GM/15 ML 30 ML UD Cup PO SCH ×2 (09:12→13:55)
[2016-10-02] MEDS: Spironolactone 25 MG Tab PO SCH (09:14)
[2016-10-02] MEDS: Calcium Carbonate/Vitamin D3 1250 MG-200 Unit Tab PO SCH (09:14)
[2016-10-02] MEDS: Rifaximin 550 MG Tab PO SCH (09:14)
[2016-10-02] MEDS: glipiZIDE 2.5 MG Tab.ER PO SCH (09:14)
[2016-10-02] MEDS: Fluconazole 100 MG Tab PO SCH (09:14)
[2016-10-02] MEDS: Insulin Aspart 100 Units/ML 3 ML Pen SUBCUT SCH (09:15)
[2016-10-02] MEDS: NADOLOL 40 MG PO SCH (09:18)
[2016-10-02 11:36] VITALS: BP 134/55
--- NOTE | 2016-10-22 22:57 | DISCH ---
DISCHARGE DIAGNOSES: 1. Hepatic encephalopathy. 2. Chronic non-compliance with lactulose resulting in hepatic encephalopathy. 3. Non-alcoholic steatohepatitis with complications including cirrhosis, esophageal varices, thrombocytopenia and hyperammonemia. 4. Type 2 diabetes. 5. Hypertension. 6. 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 7. Hypoalbuminemia. BRIEF HISTORY OF PRESENT ILLNESS: Mrs. Melvin is a 71-year-old female, well known to the staff from multiple previous similar admissions. She presented to the emergency room with increased confusion. Her stated she has not taken lactulose from at least the last 2 days. There were no other symptoms of concern. No vomiting, diarrhea, fever, chills, cough, no blood by mouth or rectum. No chest pain or shortness of breath. No urinary tract symptoms. On evaluation, she was found to have an ammonia level of 77 and was admitted for treatment of her hepatic encephalopathy. Pertinent labs and x-rays: CBC on day of admission showed a white count of 2000, platelets of 49,000, hemoglobin and hematocrit of 8.6 and 25.3, and these values did not significantly change during the course of the admission. Chemistry showed normal electrolytes. Admission BUN and creatinine were 23 and 1.1 with a GFR of 49 and on repeat were 18 and 0.9, with a GFR of 160. Magnesium was slightly low at 1.4. She had an ammonia level of 77. Amylase was 67, lipase 68. Blood sugars were monitored during the admission and ranged from a low of 73 to about 200. Glucose at the time of admission was 274. Urinalysis was essentially unremarkable. Urine toxicology was negative. Alcohol was not detected. Two view chest x-ray was done at the time of admission, it showed no new acute cardiopulmonary findings when compared to previous films performed in February and March of 2016. HOSPITAL COURSE: Mrs. Melvin was admitted as an acute inpatient for hepatic encephalopathy. She was immediately started right back on her lactulose. She also has been taking rifaximin 550 mg twice a day and this was also continued. Usual medications were restarted. She is on spironolactone 25 mg 3 times a day. She was placed on glipizide for her blood sugars and had a NovoLog sliding scale for additional coverage. She did well. On the day of discharge, she was up, ambulatory, awake and alert. Completely oriented. This is her usual hospital course, once she is back on her lactulose. Review of her clinical data shows she is taking in adequate fluids. She is voiding and moving her bowels. She was tolerating her diet. Vital signs were stable and she remained afebrile. Vital signs: On the day of discharge, blood pressure was 134/55, pulse 70, respiratory rate 20, oxygen saturation 100% on room air. She is afebrile. HEENT: Unremarkable. Sclerae were nonicteric. ENT was otherwise clear. Chest: Showed clear but diminished bilateral breath sounds. Heart: Showed regular rate and rhythm. Abdomen: Soft and benign. Neurologic: She is intact. DISCHARGE MEDICATIONS: She will continue her usual medications. Tylenol 500 mg every 6 hours as needed for pain or fever, Fosamax 70 mg once a week, calcium carbonate 1 tab daily, lactulose 45 mL 4 times a day, nadolol 40 mg daily, omeprazole 20 mg daily, rifaximin 550 mg twice a day, spironolactone 25 mg 3 times a day, and glipizide 5 mg twice a day. ALLERGIES: Penicillin and azithromycin. Ashley will be discharged to home in good condition. She will follow up with Ingris Cr NP of Gastroenterology in [place] on October 30, 2016 for previously scheduled followup. She should seek care sooner for increased confusion or any other symptoms of concern. As usual at the time of discharge, we stressed again the importance of taking her lactulose as directed and on a regular basis. If Ashley is coming to [facility], she usually avoids taking lactulose so that she does not have to worry about having bowel movements and this becomes one missed dose, then two missed doses, and then her ammonia levels rise and she is once again confused. Staff urged compliance. CONDITION AT THE TIME OF DISCHARGE: Improved and stable. [facility] /[id number] [place]
== END 2016-10-02 14:10 | disposition home or self-care (01) | DRG 442 ==
LOC: DL.ED 09:55 → DL.MS 11:19 → UNDOADMIN 11:19 → DL.MS 12:47
PROVIDERS: ADMIT Internal Medicine; ATTEND Internal Medicine
DX: K72.00 Acute and subacute hepatic failure without coma (principal); D61.818 Other pancytopenia; K74.3 Primary biliary cirrhosis; K75.81 Nonalcoholic steatohepatitis (NASH); I10 Essential (primary) hypertension; Z91.14 Patient's other noncompliance with medication regimen; D69.6 Thrombocytopenia, unspecified; D64.9 Anemia, unspecified; E83.42 Hypomagnesemia; Z87.891 Personal history of nicotine dependence; R41.0 Disorientation, unspecified; E11.9 Type 2 diabetes mellitus without complications; Z79.84 Long term (current) use of oral hypoglycemic drugs; R82.90 Unspecified abnormal findings in urine; E78.5 Hyperlipidemia, unspecified; Z87.440 Personal history of urinary (tract) infections; M54.9 Dorsalgia, unspecified; G89.29 Other chronic pain; M19.90 Unspecified osteoarthritis, unspecified site; Z88.1 Allergy status to other antibiotic agents; Z88.0 Allergy status to penicillin; E66.9 Obesity, unspecified; Z68.26 Body mass index [BMI] 26.0-26.9, adult; Z87.19 Personal history of other diseases of the digestive system
CPT/HCPCS: 36415; 71020; 80053; 80305; 81001; 82140; 82150; 83605; 83690; 83735; 85025; 87040 ×2; 99285; A9270; G0480; 80048; 82962; 84100; 85027; 99284; J1815-GY; J7030; J7050

== ENCOUNTER 2017-03-06 10:44 | Observation (INO) | payer MEDICARE, OTHER ==
--- NOTE | 2017-03-06 11:18 | EDM.PDOC ---
ED HPI GENERAL MEDICAL PROBLEM - General Chief Complaint: Neurological Problem Stated Complaint: EMONIA CHECKED Time Seen by Provider: 03/06/17 11:05 Source of Information: Reports: Patient History Limitations: Reports: No Limitations - History of Present Illness INITIAL COMMENTS - FREE TEXT/NARRATIVE: This 71 yo female patient reports to the ED with increased confusion this morning. The patient reports she has been taking her medications as prescribed. The patient has a history of primary biliary cerrhosis, TOPETE, Hepatic endephalopathy, pancytopenia and diabetes. Onset: Today Duration: Constant, Improving Location: Reports: Other Severity: Moderate Improves with: Reports: None Worsens with: Reports: None Associated Symptoms: Reports: No Other Symptoms - Related Data Allergies Allergy/AdvReac Type Severity Reaction Status Date / Time Penicillins Allergy Difficulty Verified 03/06/17 10:49 Swallowing azithromycin [From Zithromax] AdvReac Unknown Nausea Verified 03/06/17 10:49 Home Meds: Home Meds Omeprazole 20 mg PO DAILY 11/01/14 [History] Lactulose 45 ml PO QID 03/17/15 [History] Alendronate Sodium [Fosamax] 70 mg PO WEEKLY 06/29/15 [History] Acetaminophen [Tylenol Extra Strength] 500 mg PO Q6H PRN 11/01/15 [History] Nadolol [Corgard] 40 mg PO DAILY 11/01/15 [History] Calcium Carbonate/Vitamin D3 [Caltrate 600 Plus D3 Tablet] 1 tab PO DAILY [History] Rifaximin [Xifaxan] 550 mg PO BID 04/28/16 [History] Spironolactone 25 mg PO TID 06/20/16 [History] glipiZIDE [Glucotrol XL] 5 mg PO BID 06/24/16 [History] Past Medical History HEENT History: Reports: Cataract Other HEENT History: 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, OPHTHALMIC BRANCH Cardiovascular History: Reports: High Cholesterol, Hypertension Respiratory History: Reports: Asthma Gastrointestinal History: Reports: Cholelithiasis, Cirrhosis Other Gastrointestinal History: Non alcoholic liver disease; ESOPHAGEAL VARICIES Genitourinary History: Reports: Renal Calculus, UTI, 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: 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: Ectopic , Musculoskeletal History: Reports: Back Pain, Chronic, Osteoarthritis, Other ( See Below) Other Musculoskeletal History: HX OF RIGHT HIP PAIN, herniated disc Neurological History: Reports: Other (See Below) Other Neuro History: HEPATATIC ENCEPHALOPATHY Psychiatric History: Reports: None Endocrine/Metabolic History: Reports: Diabetes, Type II, Obesity/BMI 30+, Osteoporosis Hematologic History: Reports: Anemia, Other (See Below) Other Hematologic History: thrombocytopenia Immunologic History: Reports: Immunosuppression Oncologic (Cancer) History: Reports: None, Liver Other Oncologic History: Non alcoholic liver disease Dermatologic History: Reports: None - Infectious Disease History Infectious Disease History: Reports: Chicken Pox, Shingles - Past Surgical History Head Surgeries/Procedures: Reports: None HEENT Surgical History: Reports: Cataract Surgery, Naso-Sinus Surgery Respiratory Surgical History: Reports: None Female Surgical History: Reports: Salpingo-Oophorectomy, Other (See Below) Oncologic Surgical History: Reports: None Dermatological Surgical History: Reports: None Social & Family History - Family History Family Medical History: Unobtainable HEENT: Reports: Cataract Cardiac: Reports: [place], Other (See Below) Other Cardiac Family History: father of heart attack Respiratory: Reports: None GI: Reports: None : Reports: None OBGYN: Reports: None Musculoskeletal: Reports: Gout Neurological: Reports: None Psychiatric: Reports: None Endocrine/Metabolic: Reports: Diabetes, type II Hematologic: Reports: None Immunologic: Reports: None Oncologic: Reports: Breast - Tobacco Use Smoking Status *Q: Never Smoker Years of Tobacco use: 20 Packs/Tins Daily: 1 Second Hand Smoke Exposure: No - Caffeine Use Caffeine Use: Reports: None - Alcohol Use Days Per Week of Alcohol Use: 0 - Recreational Drug Use Recreational Drug Use: No Drug Use in Last 12 Months: No - Living Situation & Occupation Living situation: Reports: ED ROS GENERAL - Review of Systems Review Of Systems: ROS reveals no pertinent complaints other than HPI. - Physical Exam Exam: See Below Exam Limited By: No Limitations General Appearance: Alert, WD/WN, Moderate Distress Eye Exam: Bilateral Eye: EOMI, Normal Inspection, PERRL Ears: Normal External Exam, Normal Canal, Hearing Grossly Normal, Normal TMs Nose: Normal Inspection, Normal Mucosa, No Blood Throat/Mouth: Normal Inspection, Normal Lips, Normal Teeth, Normal Gums, Normal Oropharynx, Normal Voice, No Airway Compromise Head Exam: Atraumatic, Normocephalic Neck: Normal Inspection, Supple, Non-Tender, Full Range of Motion Respiratory/Chest: No Respiratory Distress, Lungs Clear, Normal Breath Sounds, No Accessory Muscle Use, Chest Non-Tender Cardiovascular: Normal Peripheral Pulses, Regular Rate, Rhythm, No Edema, No Gallop, No JVD, No Rub, Systolic Murmur GI/Abdominal: Normal Bowel Sounds, Soft, Non-Tender, No Organomegaly, No Distention, No Abnormal Bruit, No Mass (Female) Exam: Deferred Rectal (Female) Exam: Deferred Neuro Exam (Abbreviated): Alert, Oriented, CN II-XII Intact, Normal Cognition, Normal Reflexes, No Motor/Sensory Deficits Back Exam: Normal Inspection, Full Range of Motion, NT Extremities: Normal Inspection, Normal Range of Motion, Non-Tender, No Pedal Edema, Normal Capillary Refill Psychiatric: Normal Affect, Normal Mood Skin Exam: Warm, Dry, Intact, Normal Color, No Rash Course - Vital Signs Last Recorded V/S: Last Vital Signs Temp 36.6 C 03/06/17 10:51 Pulse 62 03/06/17 10:51 Resp 16 03/06/17 10:51 BP 159/56 H 03/06/17 10:51 Pulse Ox 100 03/06/17 10:51 - Orders/Labs/Meds Orders: Active Orders 24 hr Category Date Time Status Head wo Cont [CT] Urgent Exams 03/06/17 10:58 Taken CULTURE BLOOD [BC] Stat Lab 03/06/17 11:07 Results CULTURE BLOOD [BC] Stat Lab 03/06/17 11:13 Received DRUG SCREEN URINE BIORAD [URCHEM] Stat Lab 03/06/17 10:58 Uncollected UA W/MICROSCOPIC [URIN] Stat Lab 03/06/17 10:58 Uncollected Blood Culture x2 Reflex Set [OM.PC] Stat Oth 03/06/17 10:58 Ordered Labs: Laboratory Tests 03/06/17 03/06/17 03/06/17 Range/Units 11:07 11:13 11:13 WBC 3.2 L (5.0-10.0) 10^3/uL RBC 2.72 L (4.2-5.4) 10^6/uL Hgb 9.1 L (12.0-16.0) g/dL Hct 26.8 L (37.0-47.0) % MCV 98.5 D (80-100) fL MCH 33.5 (27.0-34.0) pg MCHC 34.0 (33.0-35.0) g/dL Plt Count 45 L* (150-450) 10^3/uL Neut % (Auto) 72.6 (42.2-75.2) % Lymph % (Auto) 16.4 L (20.5-50.1) % Scurry % (Auto) 4.4 (2-8) % Eos % (Auto) 6.0 H (1.0-3.0) % Baso % (Auto) 0.6 (0.0-1.0) % Sodium 140 (135-145) mmol/L Potassium 4.9 (3.6-5.0) mmol/L Chloride 112 H (101-111) mmol/L Carbon Dioxide 21.0 (21.0-31.0) mmol/L Anion Gap 11.9 BUN 20 H (7-18) mg/dL Creatinine 1.2 (0.6-1.3) mg/dL Est Cr Clr Drug Dosing TNP Estimated GFR (MDRD) 44 BUN/Creatinine Ratio 16.66 Glucose 106 H (74-105) mg/dL Lactic Acid 1.0 (0.5-2.2) mmol/L Calcium 8.3 L (8.4-10.2) mg/dl Magnesium 1.6 L (1.8-2.5) mg/dL Total Bilirubin 1.4 H (0.2-1.0) mg/dL AST 35 (10-42) IU/L ALT 22 (10-60) IU/L Alkaline Phosphatase 35 L (42-121) IU/L Ammonia (11-35) umol/L Total Protein 5.8 L (6.7-8.2) g/dl Albumin 3.1 L (3.2-5.5) g/dl Globulin 2.7 Albumin/Globulin Ratio 1.15 Amylase 67 (28-100) U/L Lipase 45 (22-51) U/L Acetaminophen 11.6 Ethyl Alcohol < 5 mg/dL 03/06/17 Range/Units 11:13 WBC (5.0-10.0) 10^3/uL RBC (4.2-5.4) 10^6/uL Hgb (12.0-16.0) g/dL Hct (37.0-47.0) % MCV (80-100) fL MCH (27.0-34.0) pg MCHC (33.0-35.0) g/dL Plt Count (150-450) 10^3/uL Neut % (Auto) (42.2-75.2) % Lymph % (Auto) (20.5-50.1) % Scurry % (Auto) (2-8) % Eos % (Auto) (1.0-3.0) % Baso % (Auto) (0.0-1.0) % Sodium (135-145) mmol/L Potassium (3.6-5.0) mmol/L Chloride (101-111) mmol/L Carbon Dioxide (21.0-31.0) mmol/L Anion Gap BUN (7-18) mg/dL Creatinine (0.6-1.3) mg/dL Est Cr Clr Drug Dosing Estimated GFR (MDRD) BUN/Creatinine Ratio Glucose (74-105) mg/dL Lactic Acid (0.5-2.2) mmol/L Calcium (8.4-10.2) mg/dl Magnesium (1.8-2.5) mg/dL Total Bilirubin (0.2-1.0) mg/dL AST (10-42) IU/L ALT (10-60) IU/L Alkaline Phosphatase (42-121) IU/L Ammonia 87 H (11-35) umol/L Total Protein (6.7-8.2) g/dl Albumin (3.2-5.5) g/dl Globulin Albumin/Globulin Ratio Amylase (28-100) U/L Lipase (22-51) U/L Acetaminophen Ethyl Alcohol mg/dL Departure - Departure Time of Disposition: 12:21 Disposition: Home, Self-Care 01 Condition: Fair Clinical Impression: Hepatic encephalopathy, Increased ammonia level - Discharge Information Care Plan Goals: Discussed the examination, CT and lab results with Dr. Carlos. Dr. Carlos accepted the patient for continued evaluation and management as an observation patient at [facility] in [place]. The patient was given an oral dose of Lactulose while in the ED. - My Orders Last 24 Hours: My Active Orders 03/06/17 10:58 Head wo Cont [CT] Urgent DRUG SCREEN URINE BIORAD [URCHEM] Stat UA W/MICROSCOPIC [URIN] Stat Blood Culture x2 Reflex Set [OM.PC] Stat 03/06/17 11:07 CULTURE BLOOD [BC] Stat 03/06/17 11:13 CULTURE BLOOD [BC] Stat - Assessment/Plan Last 24 Hours: My Active Orders 03/06/17 10:58 Head wo Cont [CT] Urgent DRUG SCREEN URINE BIORAD [URCHEM] Stat UA W/MICROSCOPIC [URIN] Stat Blood Culture x2 Reflex Set [OM.PC] Stat 03/06/17 11:07 CULTURE BLOOD [BC] Stat 03/06/17 11:13 CULTURE BLOOD [BC] Stat
[2017-03-06 11:45] LABS: ACETAMINOPHEN 11.6; CHLORIDE,CL 112 mmol/L (101-111); SODIUM,NA 140 mmol/L (135-145)
[2017-03-06] MEDS ORDERED: Lactulose Soln 10 GM/15 ML 30 ML UD Cup PO ONE (12:17)
[2017-03-06] MEDS ORDERED: Acetaminophen 500 MG Tab PO PRN (13:40)
[2017-03-06] MEDS ORDERED: Albuterol/Ipratropium 3.0-0.5 MG/3 ML Neb Soln NEB PRN (13:56)
--- NOTE | 2017-03-06 13:56 | PCM.HP ---
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 The patient has a history of multiple episodes of acute encephalopathy requiring hospital admissions. The patient was just discharged from [facility] about 3-4 days ago when she was treated for hyperkalemia, acute encephalopathy. According to the that the patient was some seem to have increasing confusion today. She denies any chest pain, abdominal pain, headache, fever. She says she has been taking 30 mg lactulose 3 times a day and rifaximin twice a day. She has had multiple bowel movements yesterday. Source of Information: Patient - Related Data Allergies/Adverse Reactions: Allergies Allergy/AdvReac Type Severity Reaction Status Date / Time Penicillins Allergy Difficulty Verified 03/06/17 13:03 Swallowing azithromycin [From Zithromax] AdvReac Unknown Nausea Verified 03/06/17 13:03 Home Medications: Home Meds Omeprazole 20 mg PO DAILY 11/01/14 [History] Lactulose 45 ml PO QID 03/17/15 [History] Alendronate Sodium [Fosamax] 70 mg PO WEEKLY 06/29/15 [History] Acetaminophen [Tylenol Extra Strength] 500 mg PO Q6H PRN 11/01/15 [History] Nadolol [Corgard] 40 mg PO DAILY 11/01/15 [History] Calcium Carbonate/Vitamin D3 [Caltrate 600 Plus D3 Tablet] 1 tab PO DAILY [History] Rifaximin [Xifaxan] 550 mg PO BID 04/28/16 [History] Spironolactone 25 mg PO TID 06/20/16 [History] glipiZIDE [Glucotrol XL] 5 mg PO BID 06/24/16 [History] Past Medical History HEENT History: Reports: Cataract Other HEENT History: 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, OPHTHALMIC BRANCH Cardiovascular History: Reports: High Cholesterol, Hypertension Respiratory History: Reports: Asthma Gastrointestinal History: Reports: Cholelithiasis, Cirrhosis Other Gastrointestinal History: Non alcoholic liver disease; ESOPHAGEAL VARICIES Genitourinary History: Reports: Renal Calculus, UTI, 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 , Musculoskeletal History: Reports: Back Pain, Chronic, Osteoarthritis, Other ( See Below) Other Musculoskeletal History: HX OF RIGHT HIP PAIN, herniated disc Neurological History: Reports: Other (See Below) Other Neuro History: HEPATATIC ENCEPHALOPATHY Psychiatric History: Reports: None Endocrine/Metabolic History: Reports: Diabetes, Type II, Obesity/BMI 30+, Osteoporosis Hematologic History: Reports: Anemia, Other (See Below) Other Hematologic History: thrombocytopenia Immunologic History: Reports: Immunosuppression Oncologic (Cancer) History: Reports: None Other Oncologic History: Non alcoholic liver disease Dermatologic History: Reports: None - Infectious Disease History Infectious Disease History: Reports: Shingles - Past Surgical History Head Surgeries/Procedures: Reports: None HEENT Surgical History: Reports: Cataract Surgery, Naso-Sinus Surgery Cardiovascular Surgical History: Reports: None Respiratory Surgical History: Reports: None GI Surgical History: Reports: Appendectomy, Cholecystectomy Female Surgical History: Reports: Salpingo-Oophorectomy, Other (See Below) Endocrine Surgical History: Reports: None Neurological Surgical History: Reports: None Musculoskeletal Surgical History: Reports: None Oncologic Surgical History: Reports: None Dermatological Surgical History: Reports: None Social & Family History - Family History Family Medical History: Unobtainable HEENT: Reports: Cataract Cardiac: Reports: [place], Other (See Below) Other Cardiac Family History: father of heart attack Respiratory: Reports: None GI: Reports: None : Reports: None OBGYN: Reports: None Musculoskeletal: Reports: Gout Neurological: Reports: None Psychiatric: Reports: None Endocrine/Metabolic: Reports: Diabetes, type II Hematologic: Reports: None Immunologic: Reports: None Oncologic: Reports: Breast - Tobacco Use Smoking Status *Q: Never Smoker Years of Tobacco use: 20 Packs/Tins Daily: 1 Second Hand Smoke Exposure: No - Caffeine Use Caffeine Use: Reports: None - Alcohol Use Days Per Week of Alcohol Use: 0 - Recreational Drug Use Recreational Drug Use: No Drug Use in Last 12 Months: No - Living Situation & Occupation Living situation: Reports: H&P Review of Systems - Review of Systems: Review Of Systems: See Below General: Denies: Fever, Chills Cardiovascular: Denies: Chest Pain Gastrointestinal: Denies: Abdominal Pain Genitourinary: Denies: Dysuria Psychiatric: Reports: Confusion Exam - Exam Exam: See Below - Vital Signs Vital Signs: Last Vital Signs Temp 36.6 C 03/06/17 12:44 Pulse 57 L 03/06/17 12:44 Resp 20 03/06/17 12:44 BP 171/51 H 03/06/17 12:44 Pulse Ox 99 03/06/17 12:44 Weight: 83.007 kg - Exam General: Alert, Oriented Neck: Supple Lungs: Clear to Auscultation, Normal Respiratory Effort GI/Abdominal Exam: Normal Bowel Sounds, Soft, Non-Tender, Other (Obese) Extremities: No Pedal Edema - Patient Data Lab Results Last 24 hrs: Laboratory Results - last 24 hr 03/06/17 03/06/17 Range/Units 12:50 12:50 Urine Color Yellow (YELLOW) Urine Appearance Cloudy (CLEAR) Urine pH 5.5 (5.0-9.0) Ur Specific Vassar 1.010 (1.005-1.030) Urine Protein Negative (NEGATIVE) Urine Glucose (UA) Negative (NEGATIVE) Urine Ketones Negative (NEGATIVE) Urine Occult Blood Moderate H (NEGATIVE) Urine Nitrite Negative (NEGATIVE) Urine Bilirubin Negative (NEGATIVE) Urine Urobilinogen 0.2 (0.2-1.0) mg/dL Ur Leukocyte Esterase Negative (NEGATIVE) Urine RBC 5-10 H /HPF Urine WBC 0-5 (0-5/HPF) /HPF Ur Epithelial Cells Moderate H /HPF Urine Bacteria Moderate H (0-FEW/HPF) /HPF Urine Mucus Few H /LPF Urine Yeast Few H (0/HPF) /HPF Urine Opiates Screen Negative (NEGATIVE) Ur Oxycodone Screen Negative (NEGATIVE) Urine Methadone Screen Negative (NEGATIVE) Ur Barbiturates Screen Negative (NEGATIVE) U Tricyclic Antidepress Negative (NEGATIVE) Ur Phencyclidine Scrn Negative (NEGATIVE) Ur Amphetamine Screen Negative (NEGATIVE) U Methamphetamines Scrn Negative (NEGATIVE) Urine MDMA Screen Negative (NEGATIVE) U Benzodiazepines Scrn Negative (NEGATIVE) Urine Cocaine Screen Negative (NEGATIVE) U Marijuana (THC) Screen Negative (NEGATIVE) Result Diagrams: 03/06/17 11:13 03/06/17 11:13 *Q Meaningful Use (ADM) - VTE *Q VTE Criteria *Q: - Stroke *Q Stroke Criteria *Q: - AMI *Q AMI Criteria *Q: - Problem List (1) Hepatic encephalopathy SNOMED Code(s): 36783713 ICD Code: K72.90 - HEPATIC FAILURE, UNSPECIFIED WITHOUT COMA Status: Acute Current Visit: Yes Problem List Initiated/Reviewed/Updated: Yes Orders Last 24hrs: Active Orders 24 hr Category Date Time Status AMMONIA VENOUS [CHEM] AM Lab 03/07/17 05:11 Ordered BASIC METABOLIC PANEL,BMP [CHEM] AM Lab 03/07/17 05:15 Ordered CBC WITH AUTO DIFF [HEME] AM Lab 03/07/17 05:15 Ordered Acetaminophen [Tylenol Extra Strength] Med 03/06/17 13:40 Ordered 500 mg PO Q6H PRN Furosemide [Lasix] Med 03/07/17 09:00 Ordered 20 mg PO DAILY Lactulose [Lactulose] Med 03/06/17 17:00 Ordered 45 ml PO QID Nadolol [Corgard] Med 03/07/17 09:00 Ordered 80 mg PO DAILY Omeprazole Med 03/07/17 09:00 Ordered 20 mg PO DAILY Rifaximin [Xifaxan] Med 03/06/17 21:00 Ordered 550 mg PO BID Sodium Bicarbonate Med 03/07/17 09:00 Ordered 650 mg PO DAILY Spironolactone [Aldactone] Med 03/07/17 09:00 Ordered 50 mg PO DAILY glipiZIDE [Glucotrol XL] Med 03/06/17 21:00 Ordered 5 mg PO BID Medication Orders Acetaminophen (Tylenol Extra Strength) 500 mg PO Q6H PRN PRN Reason: Pain Furosemide (Lasix) 20 mg PO DAILY BENNY Glipizide (Glucotrol Xl) 5 mg PO BID BENNY Non-Formulary Medication (Lactulose [Lactulose]) 45 ml PO QID [facility] Non-Formulary Medication (Nadolol [Corgard]) 80 mg PO DAILY BENNY Omeprazole (Omeprazole) 20 mg PO DAILY BENNY Rifaximin (Xifaxan) 550 mg PO BID BENNY Sodium Bicarbonate (Sodium Bicarbonate) 650 mg PO DAILY BENNY Spironolactone (Aldactone) 50 mg PO DAILY BENNY Assessment/Plan Comment:: Acute encephalopathy likely due to hepatitic encephalopathy due to liver cirrhosis due to TOPETE Continue lactulose Continue rifaximine Repeat ammonia level in the morning Monitor symptoms Continue diuretics with Lasix and spironolactone Recheck electrolytes in the morning Diabetes Continue glipizide Monitor blood sugars before meals and at night Use supplemental insulin as needed Chronic obstructive pulmonary disease No acute exacerbation Continue Pulmicort, DuoNeb Pancytopenia secondary to portal venous hypertension due to liver cirrhosis Anemia likely due to CKD Monitor blood counts DVT prophylaxis will be with SCDs We will not use heparin given the thrombocytopenia
[2017-03-06] MEDS ORDERED: Zolpidem 5 MG Tab PO PRN (13:57)
[2017-03-06] MEDS ORDERED: Sodium Chloride 0.9% 10 ML Syringe FLUSH PRN (13:57)
[2017-03-06] MEDS ORDERED: Spironolactone 25 MG Tab PO SCH (14:00)
[2017-03-06] MEDS: Budesonide 0.5 MG/2 ML Neb Susp NEB SCH ×2 (16:37→18:07)
[2017-03-06] MEDS: Lactulose Soln 10 GM/15 ML 30 ML UD Cup PO SCH ×2 (17:05→21:16)
[2017-03-06] MEDS: Insulin Aspart 100 Units/ML 3 ML Pen SUBCUT SCH (17:23)
[2017-03-06] MEDS: glipiZIDE 5 MG Tab.ER PO SCH (18:08)
[2017-03-06] MEDS: Rifaximin 550 MG Tab PO SCH (21:16)
[2017-03-07] MEDS ORDERED: Omeprazole 20 MG Cap.CR PO SCH (06:00)
[2017-03-07] MEDS: Budesonide 0.5 MG/2 ML Neb Susp NEB SCH (07:24)
[2017-03-07] MEDS: Insulin Aspart 100 Units/ML 3 ML Pen SUBCUT SCH ×2 (08:04→12:25)
[2017-03-07] MEDS: Rifaximin 550 MG Tab PO SCH (08:27)
[2017-03-07] MEDS: glipiZIDE 5 MG Tab.ER PO SCH (08:28)
[2017-03-07] MEDS: Lactulose Soln 10 GM/15 ML 30 ML UD Cup PO SCH ×2 (08:29→13:32)
[2017-03-07] MEDS ORDERED: NADOLOL 40 MG PO SCH (09:00)
[2017-03-07] MEDS ORDERED: Furosemide 20 MG Tab PO SCH (09:00)
[2017-03-07] MEDS ORDERED: Sodium Bicarbonate 650 MG Tab PO SCH (09:00)
[2017-03-07] MEDS ORDERED: NADOLOL 80 MG PO SCH (09:00)
[2017-03-07] MEDS ORDERED: Spironolactone 25 MG Tab PO SCH (09:00)
--- NOTE | 2017-03-07 09:34 | PCM.DCSUM1 ---
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 She is now alert and oriented and has no more confusion. 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 She is now alert and oriented and has no more confusion. She will go home and follow with PMD in a week. Advise pt to have daily 3 bowel movement. - Discharge Plan Home Medications: Home Meds Omeprazole 20 mg PO DAILY 11/01/14 [History] Lactulose 45 ml PO QID 03/17/15 [History] Alendronate Sodium [Fosamax] 70 mg PO WEEKLY 06/29/15 [History] Acetaminophen [Tylenol Extra Strength] 500 mg PO Q6H PRN 11/01/15 [History] Nadolol [Corgard] 40 mg PO DAILY 11/01/15 [History] Calcium Carbonate/Vitamin D3 [Caltrate 600 Plus D3 Tablet] 1 tab PO DAILY [History] Rifaximin [Xifaxan] 550 mg PO BID 04/28/16 [History] Spironolactone 25 mg PO TID 06/20/16 [History] glipiZIDE [Glucotrol XL] 5 mg PO BID 06/24/16 [History] - Discharge Summary/Plan Comment DC Time >30 min.: Yes Discharge Summary/Plan Comment: This is a 71 y/o F with a history of 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 She is now alert and oriented and has no more confusion. She will go home and follow with PMD in a week. Advise pt to have daily atleast 3 bowel movement. 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 Continue lactulose Continue rifaximine Repeat ammonia level in the morning is at same level but she has no more confusion Continue diuretics with Lasix and spironolactone Diabetes Continue glipizide Monitor blood sugars before meals and at night Use supplemental insulin as needed Chronic obstructive pulmonary disease No acute exacerbation Continue Pulmicort, DuoNeb Pancytopenia secondary to portal venous hypertension due to liver cirrhosis Anemia likely due to CKD /chronic illness Disposition: will be going home today and will follow with PMD in a week - General Info Date of Service: 03/07/17 Admission Dx/Problem (Free Text: The patient is a 71-year-old lady with a history of thumb hepatic encephalopathy due to liver cirrhosis and portal hypertension. The patient has a history of multiple episodes of acute encephalopathy requiring hospital admissions. The patient was just discharged from [place] about 3-4 days ago when she was treated for hyperkalemia, acute encephalopathy.According to the that the patient was some seem to have increasing confusion today. She says she has been taking 30 mg lactulose 3 times a day and rifaximin twice a day.She has had multiple bowel movements yesterday. Today she feels good and no more confused and will be going home. advise to have atleast 3 BM daily Functional Status: Reports: Pain Controlled, Tolerating Diet, Ambulating, Urinating - Review of Systems General: Reports: Appetite (good). Denies: Fever, Malaise, Chills HEENT: Denies: Ear Pain, Headaches, Sinus Congestion, Visual Changes Pulmonary: Denies: Shortness of Breath, Pleuritic Chest Pain, Cough, Sputum, Wheezing Cardiovascular: Denies: Chest Pain, Dyspnea on Exertion, Lightheadedness Gastrointestinal: Denies: Abdominal Pain, Constipation, Difficulty Swallowing, Nausea, Vomiting Genitourinary: Denies: Dysuria, Frequency, Burning, Urgency, Flank Pain Musculoskeletal: Denies: Neck Pain, Hand Pain, Leg Pain Skin: Denies: Cyanosis, Diaphoresis, Pruritis, Rash Neurological: Denies: Confusion, Numbness, Tremors Psychiatric: Reports: No Symptoms - Patient Data Vitals - Most Recent: Last Vital Signs Temp 36.8 C 03/07/17 08:03 Pulse 59 L 03/07/17 08:03 Resp 20 03/07/17 08:03 BP 145/58 H 03/07/17 08:03 Pulse Ox 98 03/07/17 08:03 Weight - Most Recent: 83.007 kg I&O - Last 24 hours: Intake & Output 03/06/17 03/07/17 03/07/17 22:59 06:59 14:59 Output Total 300 300 Balance -300 -300 Lab Results - Last 24 hrs: Laboratory Results - last 24 hr 03/06/17 03/06/17 03/07/17 Range/Units 17:15 20:55 06:20 WBC (5.0-10.0) 10^3/uL RBC (4.2-5.4) 10^6/uL Hgb (12.0-16.0) g/dL Hct (37.0-47.0) % MCV (80-100) fL MCH (27.0-34.0) pg MCHC (33.0-35.0) g/dL Plt Count (150-450) 10^3/uL Neut % (Auto) (42.2-75.2) % Lymph % (Auto) (20.5-50.1) % [place] % (Auto) (2-8) % Eos % (Auto) (1.0-3.0) % Baso % (Auto) (0.0-1.0) % Sodium (135-145) mmol/L Potassium (3.6-5.0) mmol/L Chloride (101-111) mmol/L Carbon Dioxide (21.0-31.0) mmol/L Anion Gap BUN (7-18) mg/dL Creatinine (0.6-1.3) mg/dL Est Cr Clr Drug Dosing mL/min Estimated GFR (MDRD) Glucose (74-105) mg/dL POC Glucose 63 L 171 H (83-110) mg/dl Calcium (8.4-10.2) mg/dl Ammonia 117 H (11-35) umol/L 03/07/17 03/07/17 03/07/17 Range/Units 06:20 06:20 07:47 WBC 2.5 L (5.0-10.0) 10^3/uL RBC 2.41 L (4.2-5.4) 10^6/uL Hgb 8.0 L (12.0-16.0) g/dL Hct 23.8 L (37.0-47.0) % MCV 98.8 (80-100) fL MCH 33.2 (27.0-34.0) pg MCHC 33.6 (33.0-35.0) g/dL Plt Count 40 L* (150-450) 10^3/uL Neut % (Auto) 61.3 (42.2-75.2) % Lymph % (Auto) 23.3 (20.5-50.1) % [place] % (Auto) 7.1 (2-8) % Eos % (Auto) 7.5 H (1.0-3.0) % Baso % (Auto) 0.8 (0.0-1.0) % Sodium 141 (135-145) mmol/L Potassium 4.2 (3.6-5.0) mmol/L Chloride 115 H (101-111) mmol/L Carbon Dioxide 21.0 (21.0-31.0) mmol/L Anion Gap 9.2 BUN 16 (7-18) mg/dL Creatinine 1.1 (0.6-1.3) mg/dL Est Cr Clr Drug Dosing 37.64 mL/min Estimated GFR (MDRD) 49 Glucose 61 L (74-105) mg/dL POC Glucose 66 L (83-110) mg/dl Calcium 8.4 (8.4-10.2) mg/dl Ammonia (11-35) umol/L Med Orders - Current: Current Medications Acetaminophen (Tylenol Extra Strength) 500 mg PO Q6H PRN PRN Reason: Pain Albuterol/Ipratropium (Duoneb 3.0-0.5 Mg/3 Ml) 3 ml NEB Q4HRRT PRN PRN Reason: sob Last Admin: 03/07/17 07:25 Dose: 3 ml Budesonide (Pulmicort) 0.5 mg NEB BIDRT [facility] Last Admin: 03/07/17 07:24 Dose: 0.5 mg Furosemide (Lasix) 20 mg PO DAILY [facility] Last Admin: 03/07/17 08:28 Dose: 20 mg Glipizide (Glucotrol Xl) 5 mg PO BIDMEALS [facility] Last Admin: 03/07/17 08:28 Dose: 5 mg Insulin Aspart (Novolog) 0 unit SUBCUT TIDAC [facility] PRN Reason: Protocol Last Admin: 03/07/17 08:04 Dose: Not Given Lactulose (Cephulac) 30 gm PO QID [facility] Last Admin: 03/07/17 08:29 Dose: 30 gm Non-Formulary Medication (Nadolol [Corgard]) 80 mg PO DAILY [facility] Omeprazole (Omeprazole) 20 mg PO ACBREAKFAST [facility] Last Admin: 03/07/17 06:10 Dose: 20 mg Rifaximin (Xifaxan) 550 mg PO BID [facility] Last Admin: 03/07/17 08:27 Dose: 550 mg Sodium Bicarbonate (Sodium Bicarbonate) 650 mg PO DAILY [facility] Last Admin: 03/07/17 08:27 Dose: 650 mg Sodium Chloride (Saline Flush) 10 ml FLUSH ASDIRECTED PRN PRN Reason: Keep Vein Open Spironolactone (Aldactone) 50 mg PO DAILY [facility] Last Admin: 03/07/17 08:28 Dose: 50 mg Zolpidem Tartrate (Ambien) 5 mg PO BEDTIME PRN PRN Reason: Sleep Discontinued Medications Lactulose (Cephulac) 20 gm PO ONETIME ONE Stop: 03/06/17 12:18 Last Admin: 03/06/17 12:23 Dose: 20 gm Non-Formulary Medication (Nadolol [Corgard]) 40 mg PO DAILY [facility] Spironolactone (Aldactone) 25 mg PO TID BENNY - Exam Quality Assessment: Reports: DVT Prophylaxis. Denies: Supplemental Oxygen, Urine Catheter, Skin Breakdown General: Reports: Alert, Oriented, Cooperative, No Acute Distress HEENT: Reports: Pupils Equal, Mucous Membr. Moist/[place] Neck: Reports: Supple, No JVD, No Thyromegaly Lungs: Reports: Clear to Auscultation, Normal Respiratory Effort Cardiovascular: Reports: Regular Rate, Regular Rhythm, Murmurs GI/Abdominal Exam: Normal Bowel Sounds, Soft, Non-Tender. No: Guarding, Rigid, Rebound (Female) Exam: Deferred Rectal (Female) Exam: Deferred Back Exam: Reports: Normal Inspection, Full Range of Motion Extremities: Normal Inspection, No Pedal Edema Skin: Reports: Warm, Intact Neurological: Reports: No New Focal Deficit Psy/Mental Status: Reports: Alert, Normal Affect, Normal Mood *Q Meaningful Use (DIS) - VTE *Q VTE Criteria *Q: - Stroke *Q Stroke Criteria *Q: - AMI *Q AMI Criteria *Q:
[2017-03-07 13:38] VITALS: BP 142/61
== END 2017-03-07 15:00 | disposition home or self-care (01) ==
LOC: DL.ED 10:44 → UNDOADMOB 12:41 → DL.MS 12:41
PROVIDERS: ADMIT Internal Medicine; ATTEND Internal Medicine
DX: G93.40 Encephalopathy, unspecified (principal); E11.9 Type 2 diabetes mellitus without complications; J44.9 Chronic obstructive pulmonary disease, unspecified; D61.818 Other pancytopenia; D64.9 Anemia, unspecified; I10 Essential (primary) hypertension; E66.9 Obesity, unspecified; Z79.899 Other long term (current) drug therapy; Z88.0 Allergy status to penicillin; Z88.1 Allergy status to other antibiotic agents; Z68.30 Body mass index [BMI] 30.0-30.9, adult; Z90.49 Acquired absence of other specified parts of digestive tract; Z90.710 Acquired absence of both cervix and uterus
CPT/HCPCS: 36415; 70450; 80048; 80053; 80305; 81001; 82140; 82150; 82962; 83605; 83690; 83735; 85025; 87040; 94010; 94640; 94667; 99285; A9270; G0378; G0480; J1815; 99284

== ENCOUNTER 2017-03-25 09:13 | Emergency (ER) | payer MEDICARE, OTHER ==
--- NOTE | 2017-03-25 09:25 | EDM.PDOC ---
ED HPI GENERAL MEDICAL PROBLEM - General Chief Complaint: General Stated Complaint: [id number] BLOOD SUGAR Time Seen by Provider: 03/25/17 09:45 Source of Information: Reports: Patient, Family, RN, RN Notes Reviewed History Limitations: Reports: No Limitations - History of Present Illness INITIAL COMMENTS - FREE TEXT/NARRATIVE: Pt presents to the ER with her with c/o increased confusion. Her states he was concerned that her blood sugar was abnormal. He states she has been more forgetful lately. Patient denies any recent illness, fever, chills, N/V/D, sob, chest pain. Onset: Today - Related Data Allergies Allergy/AdvReac Type Severity Reaction Status Date / Time Penicillins Allergy Difficulty Verified 03/25/17 09:17 Swallowing azithromycin [From Zithromax] AdvReac Unknown Nausea Verified 03/25/17 09:17 Home Meds: Home Meds Omeprazole 20 mg PO DAILY 11/01/14 [History] Lactulose 45 ml PO QID 03/17/15 [History] Alendronate Sodium [Fosamax] 70 mg PO WEEKLY 06/29/15 [History] Acetaminophen [Tylenol Extra Strength] 500 mg PO Q6H PRN 11/01/15 [History] Nadolol [Corgard] 40 mg PO DAILY 11/01/15 [History] Calcium Carbonate/Vitamin D3 [Caltrate 600 Plus D3 Tablet] 1 tab PO DAILY [History] Rifaximin [Xifaxan] 550 mg PO BID 04/28/16 [History] Spironolactone 25 mg PO TID 06/20/16 [History] glipiZIDE [Glucotrol XL] 5 mg PO BID 06/24/16 [History] Past Medical History HEENT History: Reports: Cataract Other HEENT History: 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, OPHTHALMIC BRANCH Cardiovascular History: Reports: High Cholesterol, Hypertension Respiratory History: Reports: Asthma Gastrointestinal History: Reports: Cholelithiasis, Cirrhosis Other Gastrointestinal History: Non alcoholic liver disease; ESOPHAGEAL VARICIES Genitourinary History: Reports: Renal Calculus, UTI, Recurrent LEATHER SKINNER History: Reports: Ectopic , Musculoskeletal History: Reports: Back Pain, Chronic, Osteoarthritis, Other ( See Below) Other Musculoskeletal History: HX OF RIGHT HIP PAIN, herniated disc Neurological History: Reports: Other (See Below) Other Neuro History: HEPATATIC ENCEPHALOPATHY Psychiatric History: Reports: None Endocrine/Metabolic History: Reports: Diabetes, Type II, Obesity/BMI 30+, Osteoporosis Hematologic History: Reports: Anemia, Other (See Below) Other Hematologic History: thrombocytopenia Immunologic History: Reports: Immunosuppression Oncologic (Cancer) History: Reports: None Other Oncologic History: Non alcoholic liver disease Dermatologic History: Reports: None - Infectious Disease History Infectious Disease History: Reports: Shingles - Past Surgical History Head Surgeries/Procedures: Reports: None HEENT Surgical History: Reports: Cataract Surgery, Naso-Sinus Surgery Cardiovascular Surgical History: Reports: None Respiratory Surgical History: Reports: None GI Surgical History: Reports: Appendectomy, Cholecystectomy Female Surgical History: Reports: Salpingo-Oophorectomy, Other (See Below) Endocrine Surgical History: Reports: None Neurological Surgical History: Reports: None Musculoskeletal Surgical History: Reports: None Oncologic Surgical History: Reports: None Dermatological Surgical History: Reports: None Social & Family History - Family History Family Medical History: Unobtainable HEENT: Reports: Cataract Cardiac: Reports: [place], Other (See Below) Other Cardiac Family History: father of heart attack Respiratory: Reports: None GI: Reports: None : Reports: None OBGYN: Reports: None Musculoskeletal: Reports: Gout Neurological: Reports: None Psychiatric: Reports: None Endocrine/Metabolic: Reports: Diabetes, type II Hematologic: Reports: None Immunologic: Reports: None Oncologic: Reports: Breast - Tobacco Use Smoking Status *Q: Never Smoker Years of Tobacco use: 20 Packs/Tins Daily: 1 Second Hand Smoke Exposure: No - Caffeine Use Caffeine Use: Reports: None - Alcohol Use Days Per Week of Alcohol Use: 0 - Recreational Drug Use Recreational Drug Use: No Drug Use in Last 12 Months: No - Living Situation & Occupation Living situation: Reports: ED ROS GENERAL - Review of Systems Review Of Systems: ROS reveals no pertinent complaints other than HPI. ED EXAM, GENERAL - Physical Exam Exam: See Below Exam Limited By: Altered Mental Status (increased forgetfulness) General Appearance: Alert, WD/WN, No Apparent Distress Eye Exam: Bilateral Eye: Normal Inspection, PERRL Ears: Normal External Exam, Hearing Grossly Normal Nose: Normal Inspection Throat/Mouth: Normal Inspection, Normal Voice, No Airway Compromise Head: Atraumatic, Normocephalic Neck: Normal Inspection, Supple, Non-Tender, Full Range of Motion Respiratory/Chest: No Respiratory Distress, Decreased Breath Sounds Cardiovascular: Normal Peripheral Pulses, Regular Rate, Rhythm, No Edema, No Gallop, No JVD, Systolic Murmur Peripheral Pulses: 2+: Radial (L), Radial (R) GI/Abdominal: Normal Bowel Sounds, Soft, Non-Tender (Female) Exam: Deferred Rectal (Female) Exam: Deferred Back Exam: Normal Inspection, Full Range of Motion Extremities: Normal Inspection, Normal Range of Motion, Non-Tender, No Pedal Edema, Normal Capillary Refill Neurological: Alert, Oriented. No: Normal Cognition Psychiatric: Normal Affect, Normal Mood Skin Exam: Warm, Dry, Intact, Normal Color, No Rash Lymphatic: No Adenopathy Course - Vital Signs Last Recorded V/S: Last Vital Signs Temp 97.9 F 03/25/17 11:05 Pulse 63 03/25/17 11:05 Resp 18 03/25/17 11:05 BP 173/49 H 03/25/17 11:05 Pulse Ox 100 03/25/17 11:05 - Orders/Labs/Meds Orders: Active Orders 24 hr Category Date Time Status Blood Glucose Check, Bedside [RC] ONETIME Care 03/25/17 09:32 Active UA W/MICROSCOPIC [URIN] Stat Lab 03/25/17 12:51 Results Labs: Laboratory Tests 03/25/17 03/25/17 03/25/17 Range/Units 09:20 09:28 09:28 WBC (5.0-10.0) 10^3/uL RBC (4.2-5.4) 10^6/uL Hgb (12.0-16.0) g/dL Hct (37.0-47.0) % MCV (80-100) fL MCH (27.0-34.0) pg MCHC (33.0-35.0) g/dL Plt Count (150-450) 10^3/uL Neut % (Auto) (42.2-75.2) % Lymph % (Auto) (20.5-50.1) % [place] % (Auto) (2-8) % Eos % (Auto) (1.0-3.0) % Baso % (Auto) (0.0-1.0) % Sodium (135-145) mmol/L Potassium (3.6-5.0) mmol/L Chloride (101-111) mmol/L Carbon Dioxide (21.0-31.0) mmol/L Anion Gap BUN (7-18) mg/dL Creatinine (0.6-1.3) mg/dL Est Cr Clr Drug Dosing mL/min Estimated GFR (MDRD) BUN/Creatinine Ratio Glucose (74-105) mg/dL POC Glucose 112 H (83-110) mg/dl Calcium (8.4-10.2) mg/dl Total Bilirubin (0.2-1.0) mg/dL AST (10-42) IU/L ALT (10-60) IU/L Alkaline Phosphatase (42-121) IU/L Ammonia 83 H (11-35) umol/L Total Protein (6.7-8.2) g/dl Albumin (3.2-5.5) g/dl Globulin Albumin/Globulin Ratio Urine Color (YELLOW) Urine Appearance (CLEAR) Urine pH (5.0-9.0) Ur Specific Liberal (1.005-1.030) Urine Protein (NEGATIVE) Urine Glucose (UA) (NEGATIVE) Urine Ketones (NEGATIVE) Urine Occult Blood (NEGATIVE) Urine Nitrite (NEGATIVE) Urine Bilirubin (NEGATIVE) Urine Urobilinogen (0.2-1.0) mg/dL Ur Leukocyte Esterase (NEGATIVE) Urine Opiates Screen (NEGATIVE) Ur Oxycodone Screen (NEGATIVE) Urine Methadone Screen (NEGATIVE) Ur Barbiturates Screen (NEGATIVE) U Tricyclic Antidepress (NEGATIVE) Ur Phencyclidine Scrn (NEGATIVE) Ur Amphetamine Screen (NEGATIVE) U Methamphetamines Scrn (NEGATIVE) Urine MDMA Screen (NEGATIVE) U Benzodiazepines Scrn (NEGATIVE) Urine Cocaine Screen (NEGATIVE) U Marijuana (THC) Screen (NEGATIVE) Ketones Negative 03/25/17 03/25/17 03/25/17 Range/Units 09:28 09:28 12:51 WBC 4.0 L (5.0-10.0) 10^3/uL RBC 2.58 L (4.2-5.4) 10^6/uL Hgb 8.7 L (12.0-16.0) g/dL Hct 24.9 L (37.0-47.0) % MCV 96.5 (80-100) fL MCH 33.7 (27.0-34.0) pg MCHC 34.9 (33.0-35.0) g/dL Plt Count 49 L (150-450) 10^3/uL Neut % (Auto) 69.7 (42.2-75.2) % Lymph % (Auto) 17.0 L (20.5-50.1) % [place] % (Auto) 4.3 (2-8) % Eos % (Auto) 8.5 H (1.0-3.0) % Baso % (Auto) 0.5 (0.0-1.0) % Sodium 142 (135-145) mmol/L Potassium 4.4 (3.6-5.0) mmol/L Chloride 113 H (101-111) mmol/L Carbon Dioxide 20.0 L (21.0-31.0) mmol/L Anion Gap 13.4 BUN 24 H (7-18) mg/dL Creatinine 1.3 (0.6-1.3) mg/dL Est Cr Clr Drug Dosing 28.92 mL/min Estimated GFR (MDRD) 40 BUN/Creatinine Ratio 18.46 Glucose 133 H (74-105) mg/dL POC Glucose (83-110) mg/dl Calcium 8.6 (8.4-10.2) mg/dl Total Bilirubin 1.5 H (0.2-1.0) mg/dL AST 38 (10-42) IU/L ALT 24 (10-60) IU/L Alkaline Phosphatase 38 L (42-121) IU/L Ammonia (11-35) umol/L Total Protein 6.0 L (6.7-8.2) g/dl Albumin 3.2 (3.2-5.5) g/dl Globulin 2.8 Albumin/Globulin Ratio 1.14 Urine Color (YELLOW) Urine Appearance (CLEAR) Urine pH (5.0-9.0) Ur Specific [place] (1.005-1.030) Urine Protein (NEGATIVE) Urine Glucose (UA) (NEGATIVE) Urine Ketones (NEGATIVE) Urine Occult Blood (NEGATIVE) Urine Nitrite (NEGATIVE) Urine Bilirubin (NEGATIVE) Urine Urobilinogen (0.2-1.0) mg/dL Ur Leukocyte Esterase (NEGATIVE) Urine Opiates Screen Negative (NEGATIVE) Ur Oxycodone Screen Negative (NEGATIVE) Urine Methadone Screen Negative (NEGATIVE) Ur Barbiturates Screen Negative (NEGATIVE) U Tricyclic Antidepress Negative (NEGATIVE) Ur Phencyclidine Scrn Negative (NEGATIVE) Ur Amphetamine Screen Negative (NEGATIVE) U Methamphetamines Scrn Negative (NEGATIVE) Urine MDMA Screen Negative (NEGATIVE) U Benzodiazepines Scrn Negative (NEGATIVE) Urine Cocaine Screen Negative (NEGATIVE) U Marijuana (THC) Screen Negative (NEGATIVE) Ketones 03/25/17 Range/Units 12:51 WBC (5.0-10.0) 10^3/uL RBC (4.2-5.4) 10^6/uL Hgb (12.0-16.0) g/dL Hct (37.0-47.0) % MCV (80-100) fL MCH (27.0-34.0) pg MCHC (33.0-35.0) g/dL Plt Count (150-450) 10^3/uL Neut % (Auto) (42.2-75.2) % Lymph % (Auto) (20.5-50.1) % [place] % (Auto) (2-8) % Eos % (Auto) (1.0-3.0) % Baso % (Auto) (0.0-1.0) % Sodium (135-145) mmol/L Potassium (3.6-5.0) mmol/L Chloride (101-111) mmol/L Carbon Dioxide (21.0-31.0) mmol/L Anion Gap BUN (7-18) mg/dL Creatinine (0.6-1.3) mg/dL Est Cr Clr Drug Dosing mL/min Estimated GFR (MDRD) BUN/Creatinine Ratio Glucose (74-105) mg/dL POC Glucose (83-110) mg/dl Calcium (8.4-10.2) mg/dl Total Bilirubin (0.2-1.0) mg/dL AST (10-42) IU/L ALT (10-60) IU/L Alkaline Phosphatase (42-121) IU/L Ammonia (11-35) umol/L Total Protein (6.7-8.2) g/dl Albumin (3.2-5.5) g/dl Globulin Albumin/Globulin Ratio Urine Color Yellow (YELLOW) Urine Appearance Cloudy (CLEAR) Urine pH 5.5 (5.0-9.0) Ur Specific [place] 1.020 (1.005-1.030) Urine Protein 100 H (NEGATIVE) Urine Glucose (UA) Negative (NEGATIVE) Urine Ketones Negative (NEGATIVE) Urine Occult Blood Moderate H (NEGATIVE) Urine Nitrite Negative (NEGATIVE) Urine Bilirubin Negative (NEGATIVE) Urine Urobilinogen 0.2 (0.2-1.0) mg/dL Ur Leukocyte Esterase Trace H (NEGATIVE) Urine Opiates Screen (NEGATIVE) Ur Oxycodone Screen (NEGATIVE) Urine Methadone Screen (NEGATIVE) Ur Barbiturates Screen (NEGATIVE) U Tricyclic Antidepress (NEGATIVE) Ur Phencyclidine Scrn (NEGATIVE) Ur Amphetamine Screen (NEGATIVE) U Methamphetamines Scrn (NEGATIVE) Urine MDMA Screen (NEGATIVE) U Benzodiazepines Scrn (NEGATIVE) Urine Cocaine Screen (NEGATIVE) U Marijuana (THC) Screen (NEGATIVE) Ketones Meds: Medications Discontinued Medications Generic Name Dose Route Start Last Admin Trade Name Freq PRN Reason Stop Dose Admin Sodium Chloride 1,000 mls @ 999 mls/hr 03/25/17 12:34 03/25/17 13:18 Normal Saline IV 03/25/17 13:34 Not Given .BOLUS ONE Lactulose 20 gm 03/25/17 10:28 03/25/17 10:38 Cephulac PO 03/25/17 10:29 20 gm ONETIME ONE Administration Departure - Departure Time of Disposition: 13:21 Disposition: Home, Self-Care 01 Condition: Fair Clinical Impression: TOPETE (nonalcoholic steatohepatitis) UTI (urinary tract infection) Qualifiers: Urinary tract infection type: site unspecified Hematuria presence: with hematuria Qualified Code(s): N39.0 - Urinary tract infection, site not specified ; R31.9 - Hematuria, unspecified; R31.9 - Hematuria, unspecified - Discharge Information Instructions: Urinary Tract Infection, Adult, [id number] Referrals: Asia Whitaker PA [Primary Care Provider] - Forms: ED Department Discharge Additional Instructions: Rx: Cipro Drink plenty of water Follow up with your primary care facility
[2017-03-25] MEDS ORDERED: Lactulose Soln 10 GM/15 ML 30 ML UD Cup PO ONE (10:28)
[2017-03-25] MEDS ORDERED: Sodium Chloride 0.9% 1,000 ML IV ONE (12:34)
[2017-03-25 13:30] VITALS: BP 176/52
== END 2017-03-25 13:31 | disposition home or self-care (01) ==
LOC: DL.ED 09:13
DX: N39.0 Urinary tract infection, site not specified (principal); K75.81 Nonalcoholic steatohepatitis (NASH); I10 Essential (primary) hypertension; E11.9 Type 2 diabetes mellitus without complications; E66.9 Obesity, unspecified; Z88.0 Allergy status to penicillin; Z88.1 Allergy status to other antibiotic agents; Z79.899 Other long term (current) drug therapy
CPT/HCPCS: 36415; 80053; 80305; 81001; 82009; 82140; 82962; 85025; 99283; A9270

== ENCOUNTER 2017-06-09 16:34 | Emergency (ER) | payer MEDICARE, OTHER ==
[2017-06-09] MEDS ORDERED: Sodium Chloride 0.9% 10 ML Syringe FLUSH PRN (18:36)
[2017-06-09] MEDS ORDERED: Sodium Chloride 0.9% 1,000 ML IV ONE (19:43)
--- NOTE | 2017-06-09 21:07 | EDM.PDOC ---
ED HPI GENERAL MEDICAL PROBLEM - General Chief Complaint: Neuro Symptoms/Deficits Stated Complaint: SICK. [phone] Time Seen by Provider: 06/09/17 20:40 Source of Information: Reports: Patient History Limitations: Reports: No Limitations - History of Present Illness INITIAL COMMENTS - FREE TEXT/NARRATIVE: This 71 yo female patient was brought to the ED by her due to increased confusion. The patient reports she was not feeling well yesterday (headaches and increased tiredness), but has been feeling normal today. The patient reports she has been taking her medications as directed without missing doses. The patient reports she has been eating and drinking normally. The patient reports she has had a change in her medications, but is not sure what the changes have been. The patient's reports the patient's medications were changed on June 02. The reports that the patient has not been eating well and has had intermittent episodes of confusion. The reports the patient did have a shot for a low hemoglobin last Thursday and was doing better on Thursday. Onset: Gradual Duration: Day(s):, Constant Location: Reports: Generalized Quality: Reports: Other Severity: Moderate Improves with: Reports: None Worsens with: Reports: None Associated Symptoms: Reports: No Other Symptoms - Related Data Allergies Allergy/AdvReac Type Severity Reaction Status Date / Time Penicillins Allergy Difficulty Verified 06/09/17 23:12 Swallowing azithromycin [From Zithromax] AdvReac Unknown Nausea Verified 06/09/17 23:12 Home Meds: Home Meds Omeprazole 20 mg PO DAILY 11/01/14 [History] Lactulose 45 ml PO QID 03/17/15 [History] Acetaminophen [Tylenol Extra Strength] 500 mg PO Q6H PRN 11/01/15 [History] Nadolol [Corgard] 40 mg PO DAILY 11/01/15 [History] Calcium Carbonate/Vitamin D3 [Caltrate 600 Plus D3 Tablet] 1 tab PO DAILY [History] Rifaximin [Xifaxan] 550 mg PO BID 04/28/16 [History] glipiZIDE [Glucotrol XL] 10 mg PO BID 06/24/16 [History] Alendronate Sodium [Alendronate] 70 mg PO WEEKLY 06/09/17 [History] Cholecalciferol (Vitamin D3) [Cholecalciferol] 1 gm MC DAILY 06/09/17 [History] Furosemide [Furosemide] 40 mg PO DAILY 06/09/17 [History] Lisinopril [Lisinopril] 5 mg PO DAILY 06/09/17 [History] Past Medical History HEENT History: Reports: Cataract Other HEENT History: 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, OPHTHALMIC BRANCH Cardiovascular History: Reports: High Cholesterol, Hypertension Respiratory History: Reports: Asthma Gastrointestinal History: Reports: Cholelithiasis, Cirrhosis Other Gastrointestinal History: Non alcoholic liver disease; ESOPHAGEAL VARICIES Genitourinary History: Reports: Renal Calculus, UTI, 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 , Musculoskeletal History: Reports: Back Pain, Chronic, Osteoarthritis, Other ( See Below) Other Musculoskeletal History: HX OF RIGHT HIP PAIN, herniated disc Neurological History: Reports: Other (See Below) Other Neuro History: HEPATATIC ENCEPHALOPATHY Psychiatric History: Reports: None Endocrine/Metabolic History: Reports: Diabetes, Type II, Obesity/BMI 30+, Osteoporosis Hematologic History: Reports: Anemia, Other (See Below) Other Hematologic History: thrombocytopenia Immunologic History: Reports: Immunosuppression Oncologic (Cancer) History: Reports: None Other Oncologic History: Non alcoholic liver disease Dermatologic History: Reports: None - Infectious Disease History Infectious Disease History: Reports: Shingles - Past Surgical History Head Surgeries/Procedures: Reports: None HEENT Surgical History: Reports: Cataract Surgery, Naso-Sinus Surgery Cardiovascular Surgical History: Reports: None Respiratory Surgical History: Reports: None GI Surgical History: Reports: Appendectomy, Cholecystectomy Female Surgical History: Reports: Salpingo-Oophorectomy, Other (See Below) Endocrine Surgical History: Reports: None Neurological Surgical History: Reports: None Musculoskeletal Surgical History: Reports: None Oncologic Surgical History: Reports: None Dermatological Surgical History: Reports: None Social & Family History - Family History Family Medical History: Unobtainable HEENT: Reports: Cataract Cardiac: Reports: [place], Other (See Below) Other Cardiac Family History: father of heart attack Respiratory: Reports: None GI: Reports: None : Reports: None OBGYN: Reports: None Musculoskeletal: Reports: Gout Neurological: Reports: None Psychiatric: Reports: None Endocrine/Metabolic: Reports: Diabetes, type II Hematologic: Reports: None Immunologic: Reports: None Oncologic: Reports: Breast - Tobacco Use Smoking Status *Q: Never Smoker Years of Tobacco use: 20 Packs/Tins Daily: 1 Second Hand Smoke Exposure: No - Caffeine Use Caffeine Use: Reports: None - Alcohol Use Days Per Week of Alcohol Use: 0 - Recreational Drug Use Recreational Drug Use: No Drug Use in Last 12 Months: No - Living Situation & Occupation Living situation: Reports: ED ROS GENERAL - Review of Systems Review Of Systems: ROS reveals no pertinent complaints other than HPI. ED EXAM, NEURO - Physical Exam Exam: See Below Exam Limited By: No Limitations General Appearance: Alert, WD/WN, No Apparent Distress Eye Exam: Bilateral Eye: EOMI, Normal Inspection, PERRL Ears: Normal External Exam, Normal Canal, Hearing Grossly Normal, Normal TMs Nose: Normal Inspection, Normal Mucosa, No Blood Throat/Mouth: Normal Inspection, Normal Lips, Normal Teeth, Normal Gums, Normal Oropharynx, Normal Voice, No Airway Compromise Head Exam: Atraumatic, Normocephalic Neck: Normal Inspection, Supple, Non-Tender, Full Range of Motion Respiratory/Chest: No Respiratory Distress, Lungs Clear, Normal Breath Sounds, No Accessory Muscle Use, Chest Non-Tender Cardiovascular: Normal Peripheral Pulses, Regular Rate, Rhythm, No Edema, No Gallop, No JVD, No Murmur, No Rub GI/Abdominal: Normal Bowel Sounds, Soft, Non-Tender, No Organomegaly, No Distention, No Abnormal Bruit, No Mass (Female) Exam: Deferred Rectal (Female) Exam: Deferred Neurological: Alert, Normal Mood/Affect, Normal Dorsiflexion, CN II-XII Intact, Normal Plantar Flexion, Normal Reflexes, No Motor/Sensory Deficits, Oriented x 3 Back Exam: Normal Inspection, Full Range of Motion, NT Extremities: Normal Inspection, Normal Range of Motion, Non-Tender, No Pedal Edema, Normal Capillary Refill Psychiatric: Normal Affect, Normal Mood Skin Exam: Warm, Dry, Intact, Normal Color, No Rash Course - Vital Signs Last Recorded V/S: Last Vital Signs Temp 36.8 C 06/10/17 03:04 Pulse 72 06/10/17 03:04 Resp 18 06/10/17 03:04 BP 162/55 H 06/10/17 03:04 Pulse Ox 96 06/10/17 03:04 - Orders/Labs/Meds Orders: Active Orders 24 hr Category Date Time Status Peripheral IV Insertion Adult [OM.PC] Stat Oth 06/09/17 18:36 Ordered Labs: Laboratory Tests 06/09/17 06/09/17 06/09/17 Range/Units 18:47 18:47 18:47 WBC 6.0 (5.0-10.0) 10^3/uL RBC 2.77 L (4.2-5.4) 10^6/uL Hgb 9.4 L (12.0-16.0) g/dL Hct 26.9 L (37.0-47.0) % MCV 97.1 (80-100) fL MCH 33.9 (27.0-34.0) pg MCHC 34.9 (33.0-35.0) g/dL Plt Count 65 L (150-450) 10^3/uL Neut % (Auto) 70.0 (42.2-75.2) % Lymph % (Auto) 16.1 L (20.5-50.1) % Tillman % (Auto) 5.7 (2-8) % Eos % (Auto) 7.5 H (1.0-3.0) % Baso % (Auto) 0.7 (0.0-1.0) % PT 12.1 H (9.0-12.0) SEC INR 1.2 (0.9-1.2) APTT 26.2 (22.0-34.0) SEC Sodium 141 (135-145) mmol/L Potassium 4.2 (3.6-5.0) mmol/L Chloride 112 H (101-111) mmol/L Carbon Dioxide 21.0 (21.0-31.0) mmol/L Anion Gap 12.2 BUN 24 H (7-18) mg/dL Creatinine 1.1 (0.6-1.3) mg/dL Est Cr Clr Drug Dosing 34.18 mL/min Estimated GFR (MDRD) 49 BUN/Creatinine Ratio 21.81 Glucose 66 L (74-105) mg/dL POC Glucose (83-110) mg/dl Calcium 9.1 (8.4-10.2) mg/dl Total Bilirubin 1.4 H (0.2-1.0) mg/dL AST 35 (10-42) IU/L ALT 18 (10-60) IU/L Alkaline Phosphatase 34 L (42-121) IU/L Ammonia (11-35) umol/L Total Protein 6.1 L (6.7-8.2) g/dl Albumin 3.0 L (3.2-5.5) g/dl Globulin 3.1 Albumin/Globulin Ratio 0.97 Amylase 76 (28-100) U/L Lipase 54 H (22-51) U/L Urine Color (YELLOW) Urine Appearance (CLEAR) Urine pH (5.0-9.0) Ur Specific [place] (1.005-1.030) Urine Protein (NEGATIVE) Urine Glucose (UA) (NEGATIVE) Urine Ketones (NEGATIVE) Urine Occult Blood (NEGATIVE) Urine Nitrite (NEGATIVE) Urine Bilirubin (NEGATIVE) Urine Urobilinogen (0.2-1.0) mg/dL Ur Leukocyte Esterase (NEGATIVE) Urine RBC /HPF Urine WBC (0-5/HPF) /HPF Ur Epithelial Cells /HPF Urine Bacteria (0-FEW/HPF) /HPF Urine Yeast (0/HPF) /HPF 06/09/17 06/09/17 06/09/17 Range/Units 18:47 19:51 20:35 WBC (5.0-10.0) 10^3/uL RBC (4.2-5.4) 10^6/uL Hgb (12.0-16.0) g/dL Hct (37.0-47.0) % MCV (80-100) fL MCH (27.0-34.0) pg MCHC (33.0-35.0) g/dL Plt Count (150-450) 10^3/uL Neut % (Auto) (42.2-75.2) % Lymph % (Auto) (20.5-50.1) % Tillman % (Auto) (2-8) % Eos % (Auto) (1.0-3.0) % Baso % (Auto) (0.0-1.0) % PT (9.0-12.0) SEC INR (0.9-1.2) APTT (22.0-34.0) SEC Sodium (135-145) mmol/L Potassium (3.6-5.0) mmol/L Chloride (101-111) mmol/L Carbon Dioxide (21.0-31.0) mmol/L Anion Gap BUN (7-18) mg/dL Creatinine (0.6-1.3) mg/dL Est Cr Clr Drug Dosing mL/min Estimated GFR (MDRD) BUN/Creatinine Ratio Glucose (74-105) mg/dL POC Glucose 64 L (83-110) mg/dl Calcium (8.4-10.2) mg/dl Total Bilirubin (0.2-1.0) mg/dL AST (10-42) IU/L ALT (10-60) IU/L Alkaline Phosphatase (42-121) IU/L Ammonia 73 H (11-35) umol/L Total Protein (6.7-8.2) g/dl Albumin (3.2-5.5) g/dl Globulin Albumin/Globulin Ratio Amylase (28-100) U/L Lipase (22-51) U/L Urine Color Yellow (YELLOW) Urine Appearance Slightly cloudy (CLEAR) Urine pH 5.5 (5.0-9.0) Ur Specific [place] 1.020 (1.005-1.030) Urine Protein 100 H (NEGATIVE) Urine Glucose (UA) Negative (NEGATIVE) Urine Ketones Negative (NEGATIVE) Urine Occult Blood Moderate H (NEGATIVE) Urine Nitrite Negative (NEGATIVE) Urine Bilirubin Negative (NEGATIVE) Urine Urobilinogen 0.2 (0.2-1.0) mg/dL Ur Leukocyte Esterase Negative (NEGATIVE) Urine RBC 10-20 H /HPF Urine WBC 5-10 H (0-5/HPF) /HPF Ur Epithelial Cells Rare /HPF Urine Bacteria Rare (0-FEW/HPF) /HPF Urine Yeast Rare H (0/HPF) /HPF /07/26 Range/Units 21:29 WBC (5.0-10.0) 10^3/uL RBC (4.2-5.4) 10^6/uL Hgb (12.0-16.0) g/dL Hct (37.0-47.0) % MCV (80-100) fL MCH (27.0-34.0) pg MCHC (33.0-35.0) g/dL Plt Count (150-450) 10^3/uL Neut % (Auto) (42.2-75.2) % Lymph % (Auto) (20.5-50.1) % Tillman % (Auto) (2-8) % Eos % (Auto) (1.0-3.0) % Baso % (Auto) (0.0-1.0) % PT (9.0-12.0) SEC INR (0.9-1.2) APTT (22.0-34.0) SEC Sodium (135-145) mmol/L Potassium (3.6-5.0) mmol/L Chloride (101-111) mmol/L Carbon Dioxide (21.0-31.0) mmol/L Anion Gap BUN (7-18) mg/dL Creatinine (0.6-1.3) mg/dL Est Cr Clr Drug Dosing mL/min Estimated GFR (MDRD) BUN/Creatinine Ratio Glucose (74-105) mg/dL POC Glucose 146 H (83-110) mg/dl Calcium (8.4-10.2) mg/dl Total Bilirubin (0.2-1.0) mg/dL AST (10-42) IU/L ALT (10-60) IU/L Alkaline Phosphatase (42-121) IU/L Ammonia (11-35) umol/L Total Protein (6.7-8.2) g/dl Albumin (3.2-5.5) g/dl Globulin Albumin/Globulin Ratio Amylase (28-100) U/L Lipase (22-51) U/L Urine Color (YELLOW) Urine Appearance (CLEAR) Urine pH (5.0-9.0) Ur Specific [place] (1.005-1.030) Urine Protein (NEGATIVE) Urine Glucose (UA) (NEGATIVE) Urine Ketones (NEGATIVE) Urine Occult Blood (NEGATIVE) Urine Nitrite (NEGATIVE) Urine Bilirubin (NEGATIVE) Urine Urobilinogen (0.2-1.0) mg/dL Ur Leukocyte Esterase (NEGATIVE) Urine RBC /HPF Urine WBC (0-5/HPF) /HPF Ur Epithelial Cells /HPF Urine Bacteria (0-FEW/HPF) /HPF Urine Yeast (0/HPF) /HPF Meds: Medications Discontinued Medications Generic Name Dose Route Start Last Admin Trade Name Freq PRN Reason Stop Dose Admin Acetaminophen 650 mg 06/10/17 04:27 06/10/17 04:42 Tylenol PO 06/10/17 04:28 650 mg NOW ONE Administration Sodium Chloride 1,000 mls @ 999 mls/hr 06/09/17 19:43 06/09/17 19:48 Normal Saline IV 06/09/17 20:43 999 mls/hr .BOLUS ONE Administration Lactulose 40 gm 06/09/17 21:48 06/09/17 21:52 Cephulac PO 06/09/17 21:49 40 gm ONETIME ONE Administration Sodium Chloride 10 ml 06/09/17 18:36 06/09/17 19:48 Saline Flush FLUSH 10 ml ASDIRECTED PRN Administration Keep Vein Open Departure - Departure Time of Disposition: 06:45 Disposition: Home, Self-Care 01 Condition: Fair Clinical Impression: Increased ammonia level Altered mental status Qualifiers: Altered mental status type: unspecified Qualified Code(s): R41.82 - Altered mental status, unspecified - Discharge Information Instructions: Confusion, Ammonia Test Referrals: Asia Whitaker PA [Primary Care Provider] - Forms: ED Department Discharge Care Plan Goals: The patient and were advised of the examination, lab and CT results during the visit. The patient was encouraged to continue to take her medications as prescribed. If the patient has any additional symptoms or concerns, the patient should follow-up with her primary care facility or return to the emergency department.
[2017-06-09] MEDS ORDERED: Lactulose Soln 10 GM/15 ML 30 ML UD Cup PO ONE (21:48)
[2017-06-10] MEDS ORDERED: Acetaminophen 325 MG Tab PO ONE (04:27)
[2017-06-10 08:03] VITALS: BP 165/56
== END 2017-06-10 07:38 | disposition home or self-care (01) ==
LOC: DL.ED 16:34 → DL.MS 23:00 → UNDOADMOB 23:00
DX: R41.82 Altered mental status, unspecified (principal); E72.20 Disorder of urea cycle metabolism, unspecified; I10 Essential (primary) hypertension; E78.00 Pure hypercholesterolemia, unspecified; J45.909 Unspecified asthma, uncomplicated; E11.9 Type 2 diabetes mellitus without complications; Z79.899 Other long term (current) drug therapy; Z88.1 Allergy status to other antibiotic agents; Z88.0 Allergy status to penicillin
CPT/HCPCS: 36415; 70450; 80053; 81001; 82140; 82150; 82962; 83690; 85025; 85610; 85730; 96360; 99285; A9270; J7030; J7050; 99283

== ENCOUNTER 2018-09-27 10:18 | Outpatient (CLI) | payer MEDICARE, OTHER ==
[2018-09-27 13:53] VITALS: BP 129/55; PULSE 73
== END 2018-09-27 15:20 | disposition home or self-care (01) ==
LOC: DL.BLOODTR 10:18
PROVIDERS: ATTEND Internal Medicine
DX: D64.9 Anemia, unspecified (principal)
CPT/HCPCS: 36415; 36430; 86850; 86900; 86901; 86920; 86922; P9016

== ENCOUNTER 2019-09-12 12:39 | Emergency (ER) | payer MEDICARE, OTHER ==
--- NOTE | 2019-09-12 13:06 | EDM.PDOC ---
ED HPI GENERAL MEDICAL PROBLEM - General Chief Complaint: General Stated Complaint: NEEDS BLOOD CHECKED Time Seen by Provider: 09/12/19 13:06 Source of Information: Reports: Patient, Old Records, RN, RN Notes Reviewed History Limitations: Reports: No Limitations - History of Present Illness INITIAL COMMENTS - FREE TEXT/NARRATIVE: Pt declines medical screening exam, stating that she has antibodies and cannot have a transfusion at [place] and she wishes to go on her own to [place] where her specialist is and where she can have a blood transfusion. Pt states she feels fine and has no current symptoms. - Related Data Allergies Allergy/AdvReac Type Severity Reaction Status Date / Time Penicillins Allergy Difficulty Verified 09/12/19 13:10 Swallowing azithromycin [From Zithromax] AdvReac Intermediate Nausea Verified 09/12/19 13: 10 Home Meds: Home Meds Lactulose 45 ml PO QID 03/17/15 [History] Acetaminophen [Tylenol Extra Strength] 250 mg PO Q6H PRN 11/01/15 [History] Calcium Carbonate/Vitamin D3 [Caltrate 600 Plus D3 Tablet] 1 tab PO DAILY [History] Rifaximin [Xifaxan] 550 mg PO BID 04/28/16 [History] glipiZIDE [Glucotrol XL] 5 mg PO DAILY 06/24/16 [History] Alendronate Sodium [Alendronate] 70 mg PO WEEKLY 06/09/17 [History] Cholecalciferol (Vitamin D3) [Cholecalciferol] 2 gm MC DAILY 06/09/17 [History] Albuterol [Proventil HFA] 2 inh INH Q6H PRN 05/03/18 [History] Ferrous Sulfate 325 mg PO BEDTIME 05/03/18 [History] Albuterol/Ipratropium [DuoNeb 3.0-0.5 MG/3 ML] 3 ml INH Q4HR PRN 03/23/19 [ History] Cranberry 500 mg PO DAILY 03/23/19 [History] Furosemide 40 mg PO DAILY 03/23/19 [History] Omeprazole 20 mg PO DAILY 03/23/19 [History] Spironolactone [Aldactone] 12.5 mg PO DAILY 03/23/19 [History] Past Medical History HEENT History: Reports: Cataract, Impaired Vision, Other (See Below) Other HEENT History: 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, OPHTHALMIC BRANCHm, wears glasses Cardiovascular History: Reports: High Cholesterol, Hypertension Respiratory History: Reports: None Gastrointestinal History: Reports: Cholelithiasis, Cirrhosis Other Gastrointestinal History: Non alcoholic liver disease; ESOPHAGEAL VARICIES Genitourinary History: Reports: Renal Calculus, UTI, 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 , Musculoskeletal History: Reports: Back Pain, Chronic, Osteoarthritis, Other ( See Below) Other Musculoskeletal History: HX OF RIGHT HIP PAIN, herniated disc, frozen shoulder (left) Neurological History: Reports: Other (See Below) Other Neuro History: HEPATATIC ENCEPHALOPATHY Psychiatric History: Reports: None Endocrine/Metabolic History: Reports: Diabetes, Type II, Obesity/BMI 30+, Osteoporosis Hematologic History: Reports: Anemia, Other (See Below) Other Hematologic History: thrombocytopenia Immunologic History: Reports: Immunosuppression Oncologic (Cancer) History: Reports: None Other Oncologic History: Non alcoholic liver disease Dermatologic History: Reports: None - Infectious Disease History Infectious Disease History: Reports: Shingles - Past Surgical History Head Surgeries/Procedures: Reports: None HEENT Surgical History: Reports: Cataract Surgery, Naso-Sinus Surgery Cardiovascular Surgical History: Reports: None Respiratory Surgical History: Reports: None GI Surgical History: Reports: Appendectomy, Cholecystectomy, Colonoscopy, EGD Female Surgical History: Reports: Salpingo-Oophorectomy Endocrine Surgical History: Reports: None Neurological Surgical History: Reports: None Musculoskeletal Surgical History: Reports: None Oncologic Surgical History: Reports: None Dermatological Surgical History: Reports: None Social & Family History - Family History Family Medical History: Unobtainable HEENT: Reports: Cataract Cardiac: Reports: [place], Other (See Below) Other Cardiac Family History: father of heart attack Respiratory: Reports: None GI: Reports: None : Reports: None OBGYN: Reports: None Musculoskeletal: Reports: Gout Neurological: Reports: None Psychiatric: Reports: None Endocrine/Metabolic: Reports: Diabetes, type II Hematologic: Reports: None Immunologic: Reports: None Oncologic: Reports: Breast - Caffeine Use Caffeine Use: Reports: Coffee - Living Situation & Occupation Living situation: Reports: ED ROS GENERAL - Review of Systems Review Of Systems: Comprehensive ROS is negative, except as noted in HPI. ED EXAM, GENERAL - Physical Exam Exam: Not Obtained Course - Vital Signs Last Recorded V/S: Last Vital Signs Temp 96.9 F 04/06/20 13:04 Pulse 89 09/12/19 13:04 Resp 16 09/12/19 13:04 BP 156/41 H 09/12/19 13:04 Pulse Ox 100 09/12/19 13:04 Departure - Departure Time of Disposition: 13:23 Disposition: Left Without Being Seen 07 Condition: Undetermined Clinical Impression: Patient left without being seen - Discharge Information *PRESCRIPTION DRUG MONITORING PROGRAM REVIEWED*: Not Applicable *COPY OF PRESCRIPTION DRUG MONITORING REPORT IN PATIENT TRE: Not Applicable Forms: ED Department Discharge, Refusal of Medical Screening Additional Instructions: Follow up with your specialist and go for transfusion as advised by your doctor. Sepsis Event Note - Focused Exam Vital Signs: Vital Signs Temp Pulse Resp BP Pulse Ox 09/12/19 13:04 96.9 F 89 16 156/41 H 100 Date Exam was Performed: 09/12/19 Time Exam was Performed: 13:20
[2019-09-12 13:10] VITALS: BP 156/41; PULSE 89
== END 2019-09-12 13:35 | disposition left against medical advice (07) ==
LOC: DL.ED 12:39
DX: Z53.21 Procedure and treatment not carried out due to patient leaving prior to being seen by health care provider (principal)

== ENCOUNTER 2021-12-06 11:01 | Inpatient (IN) | payer MEDICARE, OTHER ==
[2021-12-06] MEDS ORDERED: Albuterol/Ipratropium 3.0-0.5 MG/3 ML Neb Soln NEB PRN (14:35)
[2021-12-06] MEDS ORDERED: Ondansetron 4 MG/2 ML SDV IVPUSH PRN (14:35)
[2021-12-06] MEDS ORDERED: HYDROmorphone 0.5 MG/0.5 ML Syringe IVPUSH PRN (14:35)
[2021-12-06] MEDS ORDERED: Ibuprofen 400 MG Tab PO PRN (14:35)
[2021-12-06] MEDS ORDERED: Acetaminophen 325 MG Tab PO PRN (14:35)
[2021-12-06] MEDS ORDERED: Sucralfate Suspension 1 GM/10 ML Cup PO ONE (15:45)
[2021-12-06] MEDS ORDERED: LACTULOSE PO SCH (17:00)
[2021-12-06] MEDS: Sucralfate 1 GM Tab PO SCH ×2 (18:18→21:18)
[2021-12-06] MEDS ORDERED: hydrALAZINE 25 MG Tab PO PRN (21:00)
[2021-12-06] MEDS: Cholecalciferol (Vitamin D3) 25 MCG Tab PO SCH (21:18)
[2021-12-06] MEDS: Rifaximin 550 MG Tab PO SCH (21:18)
[2021-12-06] MEDS: Lactulose Soln 10 GM/15 ML 30 ML UD Cup PO SCH (21:20)
[2021-12-06] MEDS ORDERED: Calcium Gluconate 10% 1 GM/10 ML SDV IVPUSH ONE ×2 (22:22)
[2021-12-06] MEDS ORDERED: Furosemide 40 MG/4 ML VIAL IVPUSH ONE (22:22)
[2021-12-07] MEDS: hydrALAZINE 25 MG Tab PO SCH (01:11)
[2021-12-07] MEDS: Lactulose Soln 10 GM/15 ML 30 ML UD Cup PO SCH ×3 (01:11→15:27)
[2021-12-07] MEDS ORDERED: Calcium Gluconate 10% 1 GM/10 ML SDV IVPUSH ONE (02:30)
[2021-12-07] MEDS: COPPER GLUCONATE PO SCH ×3 (05:55→21:38)
[2021-12-07] MEDS: Sucralfate 1 GM Tab PO SCH ×4 (06:19→21:38)
[2021-12-07 06:43] LABS: PTT,PARTIAL THROMBOPLSTIN TIME 30.8 SEC (22.0-34.0)
[2021-12-07 06:44] LABS: ANION GAP 13.7 mEq/L (7-13)
[2021-12-07] MEDS: Cholecalciferol (Vitamin D3) 25 MCG Tab PO SCH ×2 (08:29→21:38)
[2021-12-07] MEDS: Calcium Carbonate/Vitamin D3 1250 MG-5 MCG Tab PO SCH (08:29)
[2021-12-07] MEDS: Folic Acid 1 MG Tab PO SCH (08:29)
[2021-12-07] MEDS: Spironolactone 25 MG Tab PO SCH (08:29)
[2021-12-07] MEDS: Ferrous Sulfate 325 MG Tab PO SCH (08:29)
[2021-12-07] MEDS: Rifaximin 550 MG Tab PO SCH ×2 (08:30→21:38)
[2021-12-07] MEDS: Furosemide 20 MG Tab PO SCH (08:30)
[2021-12-07] MEDS: CRANBERRY 500 MG PO SCH (08:32)
[2021-12-07] MEDS ORDERED: Omeprazole 20 MG Cap.CR PO SCH (09:00)
[2021-12-07] MEDS ORDERED: Non-Formulary Medication 1 Each (Cholecalciferol (Vitamin D3) [Cholecalciferol] 1 GM Cryst MC SCH (09:00)
[2021-12-07] MEDS ORDERED: Spironolactone 25 MG Tab PO SCH (09:00)
[2021-12-07] MEDS ORDERED: NADOLOL 40 MG PO SCH (09:00)
[2021-12-07] MEDS ORDERED: Sodium Bicarbonate 650 MG Tab PO STA (09:15)
[2021-12-07] MEDS ORDERED: Albumin Human 50 GM in Premix Bag 1 BAG IV ONE (12:05)
[2021-12-07] MEDS ORDERED: Sodium Bicarbonate 650 MG Tab PO ONE (18:30)
[2021-12-07] MEDS ORDERED: Patient's Own Medication 1 Each TOP SCH (21:00)
[2021-12-07] MEDS: NADOLOL 80 MG PO SCH (21:37)
[2021-12-07] MEDS: Pantoprazole 40 MG Tab.CR PO SCH (21:38)
[2021-12-08] MEDS: Lactulose Soln 10 GM/15 ML 30 ML UD Cup PO SCH ×2 (06:55→14:15)
[2021-12-08] MEDS: Pantoprazole 40 MG Tab.CR PO SCH ×2 (06:57→20:51)
[2021-12-08] MEDS: Sucralfate 1 GM Tab PO SCH ×4 (06:57→20:51)
[2021-12-08] MEDS ORDERED: ALENDRONATE 70 MG PO SCH (07:00)
[2021-12-08] MEDS: Calcium Carbonate/Vitamin D3 1250 MG-5 MCG Tab PO SCH (08:39)
[2021-12-08] MEDS: Rifaximin 550 MG Tab PO SCH ×2 (08:39→20:51)
[2021-12-08] MEDS: Ferrous Sulfate 325 MG Tab PO SCH (08:39)
[2021-12-08] MEDS: Furosemide 20 MG Tab PO SCH (08:39)
[2021-12-08] MEDS: Spironolactone 25 MG Tab PO SCH (08:39)
[2021-12-08] MEDS: Folic Acid 1 MG Tab PO SCH (08:39)
[2021-12-08] MEDS: Cholecalciferol (Vitamin D3) 25 MCG Tab PO SCH ×2 (08:39→20:51)
[2021-12-08] MEDS: CRANBERRY 500 MG PO SCH (08:45)
[2021-12-08] MEDS: COPPER GLUCONATE PO SCH ×2 (08:45→20:51)
[2021-12-08] MEDS: ZINC 50 MG PO SCH (08:45)
[2021-12-08] MEDS: NADOLOL 80 MG PO SCH (20:50)
[2021-12-09] MEDS: Pantoprazole 40 MG Tab.CR PO SCH ×2 (06:28→21:26)
[2021-12-09] MEDS: Sucralfate 1 GM Tab PO SCH ×4 (06:28→21:26)
[2021-12-09] MEDS: Lactulose Soln 10 GM/15 ML 30 ML UD Cup PO SCH ×2 (06:29→14:05)
[2021-12-09] MEDS: Ferrous Sulfate 325 MG Tab PO SCH (08:49)
[2021-12-09] MEDS: Folic Acid 1 MG Tab PO SCH (08:49)
[2021-12-09] MEDS: Spironolactone 25 MG Tab PO SCH (08:49)
[2021-12-09] MEDS: Furosemide 20 MG Tab PO SCH (08:49)
[2021-12-09] MEDS: Rifaximin 550 MG Tab PO SCH ×2 (08:49→21:26)
[2021-12-09] MEDS: Calcium Carbonate/Vitamin D3 1250 MG-5 MCG Tab PO SCH (08:50)
[2021-12-09] MEDS: COPPER GLUCONATE PO SCH ×2 (08:50→21:27)
[2021-12-09] MEDS: CRANBERRY 500 MG PO SCH (08:51)
[2021-12-09] MEDS: ZINC 50 MG PO SCH (08:52)
[2021-12-09] MEDS: Cholecalciferol (Vitamin D3) 25 MCG Tab PO SCH ×2 (08:53→21:26)
[2021-12-09 19:57] VITALS: PULSE 64
[2021-12-09] MEDS: NADOLOL 80 MG PO SCH (21:26)
[2021-12-10] MEDS: Lactulose Soln 10 GM/15 ML 30 ML UD Cup PO SCH (06:25)
[2021-12-10] MEDS: Pantoprazole 40 MG Tab.CR PO SCH (06:25)
[2021-12-10] MEDS: Sucralfate 1 GM Tab PO SCH ×2 (06:25→11:55)
[2021-12-10 07:58] VITALS: BP 116/46
[2021-12-10] MEDS: Calcium Carbonate/Vitamin D3 1250 MG-5 MCG Tab PO SCH (08:37)
[2021-12-10] MEDS: Cholecalciferol (Vitamin D3) 25 MCG Tab PO SCH (08:37)
[2021-12-10] MEDS: Rifaximin 550 MG Tab PO SCH (08:37)
[2021-12-10] MEDS: Ferrous Sulfate 325 MG Tab PO SCH (08:37)
[2021-12-10] MEDS: Spironolactone 25 MG Tab PO SCH (08:37)
[2021-12-10] MEDS: Folic Acid 1 MG Tab PO SCH (08:37)
[2021-12-10] MEDS: Furosemide 20 MG Tab PO SCH (08:38)
[2021-12-10] MEDS: COPPER GLUCONATE PO SCH (08:38)
[2021-12-10] MEDS: CRANBERRY 500 MG PO SCH (08:39)
[2021-12-10] MEDS: ZINC 50 MG PO SCH (08:40)
== END 2021-12-10 14:52 | disposition home or self-care (01) | DRG 442 ==
LOC: DL.MS 14:34
PROVIDERS: ADMIT Internal Medicine; ATTEND Hospitalist
DX: K72.00 Acute and subacute hepatic failure without coma (principal); D62 Acute posthemorrhagic anemia; I42.9 Cardiomyopathy, unspecified; I10 Essential (primary) hypertension; E66.9 Obesity, unspecified; E78.5 Hyperlipidemia, unspecified; E11.9 Type 2 diabetes mellitus without complications; R53.1 Weakness; K25.9 Gastric ulcer, unspecified as acute or chronic, without hemorrhage or perforation; K21.9 Gastro-esophageal reflux disease without esophagitis; J45.909 Unspecified asthma, uncomplicated; E55.9 Vitamin D deficiency, unspecified; E78.00 Pure hypercholesterolemia, unspecified; G89.29 Other chronic pain; M54.9 Dorsalgia, unspecified; K75.81 Nonalcoholic steatohepatitis (NASH); Z87.442 Personal history of urinary calculi; Z87.19 Personal history of other diseases of the digestive system; Z79.899 Other long term (current) drug therapy; Z79.4 Long term (current) use of insulin; Z68.32 Body mass index [BMI] 32.0-32.9, adult; Z98.42 Cataract extraction status, left eye; Z98.41 Cataract extraction status, right eye; Z90.49 Acquired absence of other specified parts of digestive tract; Z90.722 Acquired absence of ovaries, bilateral; Z97.3 Presence of spectacles and contact lenses
CPT/HCPCS: 36415; 80053; 82140; 82947; 83735; 85025; 85610; 85730; 97161-GP; 97166-GO; 97530-GO; 97535-GO; A9270-GY; P9047

== ENCOUNTER 2022-08-01 10:46 | Inpatient (IN) | payer MEDICARE, OTHER ==
[2022-08-01] MEDS ORDERED: Albuterol/Ipratropium 3.0-0.5 MG/3 ML Neb Soln NEB PRN (15:57)
[2022-08-01] MEDS ORDERED: Ibuprofen 400 MG Tab PO PRN (15:57)
[2022-08-01] MEDS ORDERED: Magnesium Hydroxide 400 MG/5 ML Susp 30 ML Cup PO PRN (15:57)
[2022-08-01] MEDS ORDERED: Bisacodyl 5 MG Tab PO PRN (15:57)
[2022-08-01] MEDS ORDERED: Ondansetron 4 MG/2 ML SDV IVPUSH PRN (15:57)
[2022-08-01] MEDS ORDERED: Polyethylene Glycol 3350 Powder 17 GM Packet PO PRN (15:57)
[2022-08-01] MEDS: Rifaximin 550 MG Tab PO SCH (20:18)
[2022-08-01] MEDS: Lactulose Soln 10 GM/15 ML 30 ML UD Cup PO SCH (20:18)
[2022-08-02] MEDS: Pantoprazole 40 MG Tab.CR PO SCH ×2 (05:16→16:22)
[2022-08-02] MEDS: Sodium Bicarbonate 650 MG Tab PO SCH (08:56)
[2022-08-02] MEDS: Calcium Carbonate/Vitamin D3 1250 MG-5 MCG Tab PO SCH (08:56)
[2022-08-02] MEDS: Rifaximin 550 MG Tab PO SCH ×2 (08:56→20:55)
[2022-08-02] MEDS: Ferrous Sulfate 325 MG Tab PO SCH (08:57)
[2022-08-02] MEDS: Lactulose Soln 10 GM/15 ML 30 ML UD Cup PO SCH ×3 (08:57→20:55)
[2022-08-02] MEDS: Folic Acid 1 MG Tab PO SCH (08:57)
[2022-08-02] MEDS ORDERED: Propranolol 20 MG Tab PO ONE (21:30)
[2022-08-02] MEDS: hydrALAZINE 25 MG Tab PO SCH (21:42)
[2022-08-03] MEDS: hydrALAZINE 25 MG Tab PO SCH ×3 (05:45→21:20)
[2022-08-03] MEDS: Pantoprazole 40 MG Tab.CR PO SCH ×2 (05:45→16:03)
[2022-08-03] MEDS: Rifaximin 550 MG Tab PO SCH ×2 (08:59→20:10)
[2022-08-03] MEDS: Calcium Carbonate/Vitamin D3 1250 MG-5 MCG Tab PO SCH (09:00)
[2022-08-03] MEDS: Ferrous Sulfate 325 MG Tab PO SCH (09:00)
[2022-08-03] MEDS: Folic Acid 1 MG Tab PO SCH (09:00)
[2022-08-03] MEDS: Lactulose Soln 10 GM/15 ML 30 ML UD Cup PO SCH ×3 (09:00→20:10)
[2022-08-03] MEDS: Propranolol 20 MG Tab PO SCH ×2 (09:00→20:10)
[2022-08-03] MEDS: Sodium Bicarbonate 650 MG Tab PO SCH (09:00)
[2022-08-04] MEDS: Pantoprazole 40 MG Tab.CR PO SCH (05:22)
[2022-08-04] MEDS: hydrALAZINE 25 MG Tab PO SCH (05:22)
[2022-08-04 07:33] LABS: ANION GAP 10.9 mEq/L (7-13)
[2022-08-04 08:00] VITALS: BP 140/48; PULSE 70
[2022-08-04] MEDS: Folic Acid 1 MG Tab PO SCH (09:19)
[2022-08-04] MEDS: Rifaximin 550 MG Tab PO SCH (09:19)
[2022-08-04] MEDS: Lactulose Soln 10 GM/15 ML 30 ML UD Cup PO SCH (09:19)
[2022-08-04] MEDS: Ferrous Sulfate 325 MG Tab PO SCH (09:19)
[2022-08-04] MEDS: Sodium Bicarbonate 650 MG Tab PO SCH (09:19)
[2022-08-04] MEDS: Propranolol 20 MG Tab PO SCH (09:19)
[2022-08-04] MEDS: Calcium Carbonate/Vitamin D3 1250 MG-5 MCG Tab PO SCH (09:19)
== END 2022-08-04 13:38 | disposition home or self-care (01) | DRG 947 ==
LOC: DL.MS 15:08 → UNDOADMIN 15:08 → DL.MS 15:46
PROVIDERS: ADMIT Internal Medicine; ATTEND Internal Medicine
DX: R53.1 Weakness (principal); K72.00 Acute and subacute hepatic failure without coma; J90 Pleural effusion, not elsewhere classified; E87.20 Acidosis, unspecified; K72.10 Chronic hepatic failure without coma; K75.81 Nonalcoholic steatohepatitis (NASH); K76.82 Hepatic encephalopathy; D69.59 Other secondary thrombocytopenia; R53.81 Other malaise; E88.09 Other disorders of plasma-protein metabolism, not elsewhere classified; I10 Essential (primary) hypertension; K21.9 Gastro-esophageal reflux disease without esophagitis; K74.3 Primary biliary cirrhosis; E55.9 Vitamin D deficiency, unspecified; R16.1 Splenomegaly, not elsewhere classified; E78.00 Pure hypercholesterolemia, unspecified; H54.7 Unspecified visual loss; E11.9 Type 2 diabetes mellitus without complications; M81.0 Age-related osteoporosis without current pathological fracture; M54.9 Dorsalgia, unspecified; G89.29 Other chronic pain; Z88.0 Allergy status to penicillin; Z88.1 Allergy status to other antibiotic agents; Z79.899 Other long term (current) drug therapy; Z90.49 Acquired absence of other specified parts of digestive tract
CPT/HCPCS: 36415; 80053; 82947; 83735; 85025; 97165-GO; 99306; 99315; A9270-GY

== ENCOUNTER 2022-11-18 17:05 | Emergency (ER) | payer MEDICARE, OTHER ==
[2022-11-18] MEDS ORDERED: predniSONE 20 MG Tab PO ONE (18:49)
[2022-11-18] MEDS ORDERED: Lidocaine 5% 700 MG Patch TOP ONE (18:50)
[2022-11-18 19:19] VITALS: BP 142/76; PULSE 78
== END 2022-11-18 19:12 | disposition home or self-care (01) ==
LOC: DL.ED 17:05
DX: M54.6 Pain in thoracic spine (principal); R07.81 Pleurodynia; I10 Essential (primary) hypertension; E11.9 Type 2 diabetes mellitus without complications; Z88.0 Allergy status to penicillin; Z88.1 Allergy status to other antibiotic agents; Z79.899 Other long term (current) drug therapy; Z79.4 Long term (current) use of insulin
CPT/HCPCS: 71101; 99283; A9270; J7512

== ENCOUNTER 2023-01-07 07:34 | Emergency (ER) | payer MEDICARE, OTHER ==
[2023-01-07 08:11] VITALS: BP 138/76; PULSE 71
[2023-01-07 08:13] LABS: BASOPHILS PERCENT AUTO 0.6 % (0.0-1.0); EOSINOPHILS PERCENT AUTO 0.6 % (1.0-3.0); HEMATOCRIT 28.9 % (37.0-47.0); HEMOGLOBIN 9.2 g/dL (12.0-16.0); LYMPHOCYTES PERCENT AUTO 10.1 % (20.5-50.1); MEAN CORPUSCULAR HEMOGLOBIN 33.6 pg (27.0-34.0); MEAN CORPUSCULAR HGB CONC 31.8 g/dL (33.0-35.0); MEAN CORPUSCULAR VOLUME 105.5 fL (80-100); MONOCYTES PERCENT AUTO 4.4 % (2-8); NEUTROPHILS PERCENT AUTO 84.3 % (42.2-75.2); RED BLOOD CELL COUNT 2.74 10^6/uL (4.2-5.4); WHITE BLOOD CELL COUNT,WBC 1.6 10^3/uL (5.0-10.0)
[2023-01-07 08:30] LABS: ALBUMIN 2.5 g/dL (3.4-5.0); ANION GAP 10.3 mEq/L (7-13); BILIRUBIN TOTAL 1.1 mg/dL (0.2-1.0); BUN/CREATININE RATIO 7.6 (No establ ref range); CALCIUM 8.7 mg/dL (8.5-10.1); CREATININE 2.91 mg/dL (0.55-1.02); EST CRCL DRUG DOSING (CG) 12.41 mL/min; MAGNESIUM 2.2 mg/dL (1.8-2.4); PLATELET COUNT,PLT 33 10^3/uL (150-450); POTASSIUM,K 4.3 mmol/L (3.5-5.1); PROTEIN TOTAL,TP 5.9 g/dL (6.4-8.2)
[2023-01-07 08:32] LABS: A/G RATIO 0.74
== END 2023-01-07 09:48 | disposition home or self-care (01) ==
LOC: DL.ED 07:34
DX: E11.649 Type 2 diabetes mellitus with hypoglycemia without coma (principal); I10 Essential (primary) hypertension; Z79.4 Long term (current) use of insulin; Z79.899 Other long term (current) drug therapy
CPT/HCPCS: 36415; 80053; 82140; 82947; 83735; 84100; 84484; 85025; 99284; 99285

== ENCOUNTER 2023-12-07 07:34 | Emergency (ER) | payer MEDICARE, OTHER ==
[2023-12-07] MEDS: Sodium Chloride 0.9% 10 ML Syringe FLUSH PRN (08:03)
[2023-12-07 08:07] LABS: BASOPHILS PERCENT AUTO 1.3 % (0.0-1.0); EOSINOPHILS PERCENT AUTO 5.1 % (1.0-3.0); HEMATOCRIT 28.4 % (37.0-47.0); HEMOGLOBIN 9.2 g/dL (12.0-16.0); LYMPHOCYTES PERCENT AUTO 22.2 % (20.5-50.1); MEAN CORPUSCULAR HEMOGLOBIN 32.3 pg (27.0-34.0); MEAN CORPUSCULAR HGB CONC 32.4 g/dL (33.0-35.0); MEAN CORPUSCULAR VOLUME 99.6 fL (80-100); NEUTROPHILS PERCENT AUTO 64.4 % (42.2-75.2); PLATELET COUNT,PLT 47 10^3/uL (150-450); RED BLOOD CELL COUNT 2.85 10^6/uL (4.2-5.4); WHITE BLOOD CELL COUNT,WBC 1.6 10^3/uL (5.0-10.0)
[2023-12-07 08:20] LABS: ALBUMIN 2.7 g/dL (3.4-5.0); ANION GAP 10.8 mEq/L (7-13); BUN/CREATININE RATIO 14.3 (No establ ref range); CALCIUM 8.3 mg/dL (8.5-10.1); CREATININE 2.79 mg/dL (0.55-1.02); EST CRCL DRUG DOSING (CG) 13.36 mL/min; MAGNESIUM 2.3 mg/dL (1.8-2.4); POTASSIUM,K 3.8 mmol/L (3.5-5.1); PROTEIN TOTAL,TP 6.2 g/dL (6.4-8.2)
[2023-12-07 08:22] LABS: A/G RATIO 0.77
[2023-12-07 08:23] LABS: LACTIC ACID 1.2 mmol/L (0.4-2.0)
[2023-12-07 08:47] LABS: INR 1.2 (0.9-1.2); PROTHROMBIN TIME 12.2 SEC (9.0-12.0); PTT,PARTIAL THROMBOPLSTIN TIME 35.5 SEC (22.0-34.0)
[2023-12-07 09:07] LABS: APPEARANCE,URINE CLEAR (CLEAR); BILIRUBIN,URINE NEGATIVE (NEGATIVE); COLOR,URINE YELLOW (YELLOW); GLUCOSE,URINE NEGATIVE (NEGATIVE); KETONES,URINE NEGATIVE (NEGATIVE); LEUKOCYTE ESTERASE,URINE SMALL (NEGATIVE); NITRITE,URINE NEGATIVE (NEGATIVE); OCCULT BLOOD,URINE NEGATIVE (NEGATIVE); PROTEIN,URINE NEGATIVE (NEGATIVE); UROBILINOGEN,URINE 0.2 mg/dL (0.2-1.0)
[2023-12-07 09:10] LABS: AMPHETAMINES,URINE NEGATIVE (NEGATIVE); BARBITURATES,URINE NEGATIVE (NEGATIVE); BENZODIAZEPINE,URINE NEGATIVE (NEGATIVE); MDMA (ECSTASY), URINE NEGATIVE (NEGATIVE); METHADONE,URINE NEGATIVE (NEGATIVE); METHAMPHETAMINES,URINE NEGATIVE (NEGATIVE); OPIATES,URINE NEGATIVE (NEGATIVE); OXYCODONE,URINE NEGATIVE (NEGATIVE); PHENCYCLIDINE,URINE NEGATIVE (NEGATIVE); TCA,URINE NEGATIVE (NEGATIVE)
[2023-12-07 09:42] LABS: BACTERIA,URINE FEW /HPF (0-FEW/HPF); EPITHELIAL CELLS,URINE MODERATE /HPF (NOT SEEN); RBC,URINE 0-5 /HPF (0-5)
[2023-12-07] MEDS: Lactulose Soln 10 GM/15 ML 30 ML UD Cup PO ONE (09:55)
[2023-12-07] MEDS: Rifaximin 550 MG Tab PO ONE (10:25)
[2023-12-07 11:54] VITALS: BP 139/48; PULSE 69
== END 2023-12-07 12:40 ==
LOC: DL.ED 07:34
DX: D61.818 Other pancytopenia (principal); K76.82 Hepatic encephalopathy; R53.1 Weakness; I10 Essential (primary) hypertension; E11.9 Type 2 diabetes mellitus without complications; Z79.899 Other long term (current) drug therapy; Z79.4 Long term (current) use of insulin; Z88.0 Allergy status to penicillin
CPT/HCPCS: 36415; 70450; 80053; 80305; 81001; 82140; 82947; 83605; 83735; 83880; 84145; 85025; 85610; 85730; 87040; 87086; 99285; A9270; J3490